=== PATIENT | female | born 1990 | race Caucasian/White ===

== ENCOUNTER 2017-07-05 01:14 | Emergency (ER) | payer MEDICAID ==
[2017-07-05 01:28] VITALS: BP 116/51
[2017-07-05 01:40] LABS: BILIRUBIN,URINE NEGATIVE (NEGATIVE); GLUCOSE, URINE (UA) NEGATIVE (NEGATIVE); KETONES,URINE (UA) NEGATIVE (NEGATIVE); LEUKOCYTE ESTERASE, URINE NEGATIVE (NEGATIVE); NITRITE,URINE NEGATIVE (NEGATIVE); OCCULT BLOOD,URINE SMALL (NEGATIVE); PH,URINE 6.5 PH (5.0-7.5); PROTEIN,URINE NEGATIVE (NEGATIVE); UROBILINOGEN,URINE 0.2 (NORMAL) E.U./dL (NORMAL)
[2017-07-05 01:48] LABS: CLARITY,URINE CLEAR (CLEAR)
[2017-07-05 01:49] LABS: HCG UR QUAL POSITIVE
[2017-07-05 01:51] LABS: BACTERIA,URINE None Seen /HPF (None Seen); RBC,URINE 0-5 /HPF (0-5); SQUAMOUS EPITHELIAL CELL,UR RARE Squamous (<= Few)
[2017-07-05 02:14] LABS: BASOPHILS # (AUTO) 0.1 10^3/uL (0.0-0.1); BASOPHILS % (AUTO) 0.7 %; EOSINOPHILS # (AUTO) 0.2 10^3/uL (0.0-0.7); EOSINOPHILS % (AUTO) 1.8 %; HGB - HEMOGLOBIN 13.2 g/dL (12.0-16.0); LYMPHOCYTES # (AUTO) 3.8 10^3/uL (1.5-3.5); LYMPHOCYTES % (AUTO) 34.2 %; MEAN CORPUSCULAR HEMOGLOBIN 29.7 pg (27.0-31.0); MEAN CORPUSCULAR VOLUME 87.4 fL (81.0-99.0); MEAN PLATELET VOLUME 8.2 fL (7.9-10.8); MONOCYTES # (AUTO) 0.6 10^3/uL (0.0-1.0); MONOCYTES % (AUTO) 5.7 %; NEUTROPHILS # (AUTO) 6.4 10^3/uL (1.5-6.6); NEUTROPHILS % (AUTO) 57.6 %; PLT - PLATELET COUNT 272 10^3/uL (130-450); RED BLOOD COUNT 4.45 10^6/uL (4.20-5.40); RED CELL DISTRIBUTION WIDTH 13.8 % (12.0-15.0); WHITE BLOOD COUNT 11.2 x10^3/uL (4.8-10.8)
--- NOTE | 2017-07-05 02:15 | ED Physician Documentation ---
PD HPI FEMALE - Stated complaint Stated Complaint: LOW ABDOMINAL PAIN - Chief complaint Chief Complaint: Abd Pain - History obtained from History obtained from: Patient - History of Present Illness Timing - onset: Yesterday Timing - details: Gradual onset, Still present Associated symptoms: Abdominal pain, Vaginal bleeding Similar symptoms before: Work up / diagnostics Recently seen: Not recently seen - Additional information Additional information: Patient is a 26 year old female presenting to the emergency department for back pain, and brownish vaginal discharge. patient states that her symptoms have been going on for the last couple of days. patient states that her lmp was about 1 month ago. Review of Systems Constitutional: denies: Fever, Chills Eyes: reports: Reviewed and negative Ears: reports: Reviewed and negative GI: reports: Abdominal Pain. denies: Nausea, Vomiting, Constipation, Diarrhea : reports: Vaginal bleeding. 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: section - Present Medications Home Medications: Ambulatory Orders Medication Instructions Recorded Confirmed No Known Home Medications [No 07/05/17 07/05/17 Known Home Medications] - Allergies Allergies/Adverse Reactions: Allergies Allergy/AdvReac Type Severity Reaction Status Date / Time No Known Drug Allergies Allergy Verified 07/05/17 01:29 - Social History Does the pt smoke?: No Smoking Status: Never smoker Does the pt drink ETOH?: No Does the pt have substance abuse?: No - Immunizations Immunizations are current?: Yes - POLST Patient has POLST: No PD ED PE NORMAL - Vitals Vital signs reviewed: Yes - General General: Alert and oriented X 3, No acute distress - HEENT HEENT: Atraumatic, PERRL - Neck Neck: Supple, no meningeal sign - Cardiac Cardiac: RRR - Respiratory Respiratory: No respiratory distress - Abdomen Abdomen: Soft, Non tender, Non distended - Rectal Rectal: Deferred - Derm Derm: Normal color, No rash - Extremities Extremities: No deformity - Neuro Neuro: Alert and oriented X 3 Eye Opening: Spontaneous Results - Vitals Vitals: Vital Signs - 24 hr 07/05/17 07/05/17 01:26 02:00 Temperature 36.3 C L Heart Rate 77 Respiratory 16 16 Rate Blood Pressure 116/51 L O2 Saturation 99 Oxygen O2 Source Room air - Labs Labs: Laboratory Tests 07/05/17 07/05/17 07/05/17 01:30 02:00 02:00 WBC 11.2 H RBC 4.45 Hgb 13.2 Hct 38.9 MCV 87.4 MCH 29.7 MCHC 34.0 RDW 13.8 Plt Count 272 MPV 8.2 Neut # 6.4 Lymph # 3.8 H [place] # 0.6 Eos # 0.2 Baso # 0.1 Absolute Nucleated RBC 0.00 Nucleated RBC % 0.0 Sodium 134 L Potassium 3.8 Chloride 105 Carbon Dioxide 23 Anion Gap 6.0 BUN 13 Creatinine 0.5 Estimated GFR (MDRD) 150 Glucose 109 H Calcium 9.3 Total Bilirubin 0.4 AST 28 ALT 33 Alkaline Phosphatase 67 Total Protein 7.9 Albumin 4.4 Globulin 3.5 Albumin/Globulin Ratio 1.3 Lipase 20 L HCG, Quant Urine Color YELLOW Urine Clarity CLEAR Urine pH 6.5 Ur Specific [place] <=1.005 Urine Protein NEGATIVE Urine Glucose (UA) NEGATIVE Urine Ketones NEGATIVE Urine Occult Blood SMALL H Urine Nitrite NEGATIVE Urine Bilirubin NEGATIVE Urine Urobilinogen 0.2 (NORMAL) Ur Leukocyte Esterase NEGATIVE Urine RBC 0-5 Urine WBC 0-3 Ur Squamous Epith Cells RARE Squamous Urine Bacteria None Seen Ur Microscopic Review INDICATED Urine Culture Comments NOT INDICATED Urine HCG, Qual POSITIVE Blood Type 07/05/17 07/05/17 02:00 02:00 WBC RBC Hgb Hct MCV MCH MCHC RDW Plt Count MPV Neut # Lymph # [place] # Eos # Baso # Absolute Nucleated RBC Nucleated RBC % Sodium Potassium Chloride Carbon Dioxide Anion Gap BUN Creatinine Estimated GFR (MDRD) Glucose Calcium Total Bilirubin AST ALT Alkaline Phosphatase Total Protein Albumin Globulin Albumin/Globulin Ratio Lipase HCG, Quant 599.93 Urine Color Urine Clarity Urine pH Ur Specific [place] Urine Protein Urine Glucose (UA) Urine Ketones Urine Occult Blood Urine Nitrite Urine Bilirubin Urine Urobilinogen Ur Leukocyte Esterase Urine RBC Urine WBC Ur Squamous Epith Cells Urine Bacteria Ur Microscopic Review Urine Culture Comments Urine HCG, Qual Blood Type O POSITIVE PD MEDICAL DECISION MAKING - ED course Complexity details: reviewed old records, reviewed results, re-evaluated patient , considered differential, d/w patient, d/w family ED course: Patient was seen and examined at bedside. patient was well appearing and in no distress. Urine was collected and labs were drawn. Patient was found to be but the beta was only 600. Patient was treated with tylenol for pain. Patient was made aware that she would need to return in 48-72 hours for repeat beta test. patient understood and was stable for discharge with outpatient follow up. Departure - Departure Disposition: Home, Self Care Clinical Impression: Early stage of Condition: Good Instructions: Bleeding Early Preg Follow-Up: primary,care provider [Other] - Within 3 Days Print Language: Martiniquais Comments: Your results of your beta hcg are low. it is impossible to say if it is early or a miscarriage. You will need to follow up with your doctor or return to the emergency department for repeat beta hcg and possibly an ultrasound. You can take tylenol 650mg as needed for pain. You should return to emergency department sooner for new or worsening symptoms.
[2017-07-05 02:20] LABS: ALBUMIN 4.4 g/dL (3.2-5.5); ALBUMIN/GLOBULIN RATIO 1.3 (1.0-2.2); BILIRUBIN,TOTAL 0.4 mg/dL (0.2-1.0); CALCIUM 9.3 mg/dL (8.5-10.3); CREATININE 0.5 mg/dL (0.4-1.0); TOTAL PROTEIN 7.9 g/dL (6.7-8.2)
[2017-07-05] MEDS ORDERED: ACETAMINOPHEN 325 MG TABLET PO STA (02:53)
== END 2017-07-05 03:10 | disposition home or self-care (01) ==
LOC: ED 01:14
DX: O20.9 Hemorrhage in early pregnancy, unspecified (principal); Z3A.01 Less than 8 weeks gestation of pregnancy
CPT/HCPCS: 36415; 80053; 81001; 81025; 83690; 84702; 85025; 86900; 86901; 87491; 87591; 99283; A9270; 81003; 87086

== ENCOUNTER 2017-07-08 19:48 | Emergency (ER) | payer MEDICAID ==
[2017-07-08 20:26] LABS: BILIRUBIN,URINE NEGATIVE (NEGATIVE); GLUCOSE, URINE (UA) NEGATIVE (NEGATIVE); KETONES,URINE (UA) NEGATIVE (NEGATIVE); LEUKOCYTE ESTERASE, URINE NEGATIVE (NEGATIVE); NITRITE,URINE NEGATIVE (NEGATIVE); OCCULT BLOOD,URINE TRACE-LYSE (NEGATIVE); PH,URINE 5.5 PH (5.0-7.5); PROTEIN,URINE NEGATIVE (NEGATIVE); UROBILINOGEN,URINE 0.2 (NORMAL) E.U./dL (NORMAL)
--- NOTE | 2017-07-08 20:28 | ED Physician Documentation ---
PD HPI FEMALE - Stated complaint Stated Complaint: FEMALE /4WKS/ABD PX - Chief complaint Chief Complaint: Abd Pain - History obtained from History obtained from: Patient - History of Present Illness Timing - onset: How many days ago (few) Timing - duration: Days (few) Timing - details: Gradual onset, Waxing and waning Associated symptoms: Pelvic pain, Vaginal bleeding (spotting). 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 denies: Vomiting, Diarrhea : reports: LMP (6 weeks ago). 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(s) : None HEENT: None Psych: None Musculoskeletal: None Derm: None - Past Surgical History Past Surgical History: Yes /MONEY ORDER CLERK: section - Present Medications Home Medications: Ambulatory Orders Medication Instructions Recorded Confirmed Naproxen 375 mg PO BID #20 tablet 07/08/17 - Allergies Allergies/Adverse Reactions: Allergies Allergy/AdvReac Type Severity Reaction Status Date / Time No Known Drug Allergies Allergy Verified 07/08/17 20:05 - Social History Does the pt smoke?: No Smoking Status: Never smoker Does the pt drink ETOH?: No Does the pt have substance abuse?: No - Immunizations Immunizations are current?: No Immunizations: TDAP >10years/unknown - POLST Patient has POLST: No PD ED PE NORMAL - Vitals Vital signs reviewed: Yes - General General: Alert and oriented X 3, No acute distress, Well developed/nourished - Cardiac Cardiac: RRR, No murmur - Respiratory Respiratory: Clear bilaterally - Abdomen Abdomen: Normal bowel sounds, Soft, Non tender, Non distended, No organomegaly - Female Female : Deferred - Back Back: No CVA TTP, No spinal TTP - Derm Derm: Normal color, Warm and dry - Neuro Neuro: Alert and oriented X 3, No motor deficit, Normal speech Results - Vitals Vitals: Oxygen O2 Source Room air - Labs Labs: Laboratory Tests 07/08/17 07/08/17 07/08/17 20:17 21:20 21:20 WBC 11.5 H RBC 4.36 Hgb 12.4 Hct 38.3 MCV 87.7 MCH 28.4 MCHC 32.4 RDW 13.4 Plt Count 284 MPV 8.3 Neut # 6.8 H Lymph # 3.8 H [place] # 0.7 Eos # 0.2 Baso # 0.1 Absolute Nucleated RBC 0.00 Nucleated RBC % 0.0 HCG, Quant 3308.00 Urine Color YELLOW Urine Clarity CLEAR Urine pH 5.5 Ur Specific [place] 1.010 Urine Protein NEGATIVE Urine Glucose (UA) NEGATIVE Urine Ketones NEGATIVE Urine Occult Blood TRACE-LYSE Urine Nitrite NEGATIVE Urine Bilirubin NEGATIVE Urine Urobilinogen 0.2 (NORMAL) Ur Leukocyte Esterase NEGATIVE Ur Microscopic Review NOT INDICATED Urine Culture Comments NOT INDICATED Urine HCG, Qual POSITIVE - Rads (name of study) OB U/S Radiology: Prelim report reviewed (gestational sac c/w 5 weeks, but no pole seen. ) PD MEDICAL DECISION MAKING - ED course Complexity details: reviewed results (apparent gestational sac without pole but is early . Her HCG has gone up from prior. ), considered differential, d/w patient Departure - Departure Disposition: 01 Home, Self Care Clinical Impression: Early stage of , Lower abdominal pain Condition: Stable Record reviewed to determine appropriate education?: Yes Instructions: ED Abdominal Pain Rule Out Ectopic Follow-Up: Mckayla Mckeon DO [Provider Admit Priv/Credential] - Prescriptions: Naproxen 375 mg PO BID #20 tablet Print Language: Wolof Comments: Your ultrasound and blood test show an early in the uterus. Follow with Dr. Mckeon in about 3 days, call for an appointment. You can use naproxen or ibuprofen twice daily and add Tylenol if needed for the pains at this point in . Recheck if not improving over the next few days. Discharge Date/Time: 07/08/17 23:43
[2017-07-08 20:29] LABS: CLARITY,URINE CLEAR (CLEAR); HCG UR QUAL POSITIVE
[2017-07-08] MEDS ORDERED: HYDROcod/ACETAM 5/325 MG TABLET PO STA (21:11)
[2017-07-08] MEDS ORDERED: ONDANSETRON ODT 4 MG TABLET TL STA (21:11)
[2017-07-08 21:43] LABS: BASOPHILS # (AUTO) 0.1 10^3/uL (0.0-0.1); BASOPHILS % (AUTO) 0.6 %; EOSINOPHILS # (AUTO) 0.2 10^3/uL (0.0-0.7); EOSINOPHILS % (AUTO) 1.5 %; HGB - HEMOGLOBIN 12.4 g/dL (12.0-16.0); LYMPHOCYTES # (AUTO) 3.8 10^3/uL (1.5-3.5); LYMPHOCYTES % (AUTO) 32.6 %; MEAN CORPUSCULAR HEMOGLOBIN 28.4 pg (27.0-31.0); MEAN CORPUSCULAR HGB CONC 32.4 g/dL (32.0-36.0); MEAN CORPUSCULAR VOLUME 87.7 fL (81.0-99.0); MEAN PLATELET VOLUME 8.3 fL (7.9-10.8); MONOCYTES # (AUTO) 0.7 10^3/uL (0.0-1.0); MONOCYTES % (AUTO) 6.4 %; NEUTROPHILS # (AUTO) 6.8 10^3/uL (1.5-6.6); NEUTROPHILS % (AUTO) 58.9 %; PLT - PLATELET COUNT 284 10^3/uL (130-450); RED BLOOD COUNT 4.36 10^6/uL (4.20-5.40); RED CELL DISTRIBUTION WIDTH 13.4 % (12.0-15.0); WHITE BLOOD COUNT 11.5 x10^3/uL (4.8-10.8)
--- NOTE | 2017-07-08 22:55 | Ultrasound Preliminary Report ---
Exam: US OB FIRST TRIMESTER IMPRESSION: Early intrauterine gestation with gestational sac but no yolk sac or pole seen curr ently. Additional tiny cystic structure could reflect a second gestational sac or perigestational ble ed. Clinical and ultrasound follow-up suggested in 2 weeks to ensure viability of and for m ore accurate dating. SITE ID: [id number]
--- NOTE | 2017-07-08 22:55 | Ultrasound Preliminary Report ---
Exam: US OB TRANSVAGINAL IMPRESSION: Early intrauterine gestation with gestational sac but no yolk sac or pole seen curr ently. Additional tiny cystic structure could reflect a second gestational sac or perigestational ble ed. Clinical and ultrasound follow-up suggested in 2 weeks to ensure viability of and for m ore accurate dating. SITE ID: [id number]
--- NOTE | 2017-07-08 22:58 | Ultrasound Report ---
EXAM: FIRST TRIMESTER OBSTETRIC ULTRASOUND (Less than 11 weeks) EXAM DATE: 07/08/2017 10:33 PM. CLINICAL HISTORY: Lower abdominal pain, left; early . LMP: 05/27/2017, 6 weeks 0 days. COMPARISONS: None. TECHNIQUE: Transabdominal and transvaginal ultrasound examination with static image documentation. CLINICAL DATES: EGA weeks/days with ALONDRA based on LMP/prior ultrasound/other. FINDINGS: Gestational Sac: A small intrauterine fluid-filled sac contains neither yolk sac or pole. Mean sac diameter of 4 mm corresponds to a 5 week 1 days gestation. There is a tiny 2 x 4 mm adjacent zoë tional cystic focus which could be a separate gestational sac or perigestational bleed. Placenta: Not visible at this gestational age. Amniotic fluid: Not accurately assessed at this gestational age. Uterus: Unremarkable anteverted appearance. Cervix: Closed. Right Ovary: Volume 6 cc. Normal echotexture and blood flow. Left Ovary: Volume 10 cc. Normal echotexture and blood flow. Free Fluid: None. Other: None. IMPRESSION: Early intrauterine gestation with gestational sac but no yolk sac or pole seen curr ently. Additional tiny cystic structure could reflect a second gestational sac or perigestational ble ed. Clinical and ultrasound follow-up suggested in 2 weeks to ensure viability of and for m ore accurate dating. Referring Provider Line: [phone] SITE ID: [id number]
[2017-07-08] MEDS ORDERED: IBUPROFEN 400 MG TABLET PO STA (23:21)
[2017-07-08 23:27] VITALS: BP 108/71
== END 2017-07-08 23:43 | disposition home or self-care (01) ==
LOC: ED 19:48
DX: O20.9 Hemorrhage in early pregnancy, unspecified (principal); R10.2 Pelvic and perineal pain; Z3A.01 Less than 8 weeks gestation of pregnancy
CPT/HCPCS: 36415; 76801; 76817; 81003; 81025; 84702; 85025; 99283; A9270; Q0162; 81001; 86900; 86901; 87086

== ENCOUNTER 2017-07-16 09:18 | Outpatient (CLI) | payer MEDICAID | END 2017-07-16 09:19 | disposition home or self-care (01) | LOC: LAB 09:18 | PROVIDERS: ATTEND Obstetrics & Gynecology | DX: Z3A.01 Less than 8 weeks gestation of pregnancy (principal) | CPT/HCPCS: 36415; 84702 ==

== ENCOUNTER 2017-07-25 16:13 | Emergency (ER) | payer MEDICAID ==
--- NOTE | 2017-07-25 16:36 | ED Physician Documentation ---
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 No fevers, vomiting. No dysuria. 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 - Present Medications Home Medications: Ambulatory Orders Medication Instructions Recorded Confirmed Naproxen 375 mg PO BID #20 tablet 07/08/17 - Allergies Allergies/Adverse Reactions: Allergies Allergy/AdvReac Type Severity Reaction Status Date / Time No Known Drug Allergies Allergy Verified 07/08/17 20:05 - Social History Does the pt smoke?: No Smoking Status: Never smoker Does the pt drink ETOH?: No Does the pt have substance abuse?: No - Immunizations Immunizations are current?: No Immunizations: TDAP >10years/unknown - POLST Patient has POLST: No PD ED PE NORMAL - Vitals Vital signs reviewed: Yes - General General: Alert and oriented X 3, No acute distress - Abdomen Abdomen: Normal bowel sounds, Soft, Non tender - Back Back: No CVA TTP, No spinal TTP - Derm Derm: Normal color, Warm and dry - Extremities Extremities: No edema, No calf tenderness / cord - Neuro Neuro: Alert and oriented X 3, Normal speech Results - Vitals Vitals: Vital Signs - 24 hr 07/25/17 16:21 Temperature 36.9 C Heart Rate 70 Respiratory 16 Rate Blood Pressure 109/53 L O2 Saturation 98 Oxygen O2 Source Room air - Labs Labs: Laboratory Tests 07/25/17 07/25/17 16:47 16:55 HCG, Quant 740259.00 Urine Color YELLOW Urine Clarity CLEAR Urine pH 5.5 Ur Specific [place] 1.010 Urine Protein NEGATIVE Urine Glucose (UA) NEGATIVE Urine Ketones NEGATIVE Urine Occult Blood TRACE-LYSE Urine Nitrite NEGATIVE Urine Bilirubin NEGATIVE Urine Urobilinogen 0.2 (NORMAL) Ur Leukocyte Esterase NEGATIVE Ur Microscopic Review NOT INDICATED Urine Culture Comments NOT INDICATED - Rads (name of study) Ob Sono Radiology: EMP read contemporaneously (Uncomplicated twin ) PD MEDICAL DECISION MAKING - ED course Complexity details: reviewed old records (blood type Opos) Departure - Departure Disposition: 01 Home, Self Care Clinical Impression: Threatened in early Twin Qualifiers: Multiple gestation type: dichorionic and diamniotic Trimester: first trimester Qualified Code(s): O30.041 - Twin , dichorionic/diamniotic, first trimester Condition: Good Record reviewed to determine appropriate education?: Yes Instructions: ED Miscarriage Poss Follow-Up: [facility] [Provider Group] Print Language: French
[2017-07-25 17:10] LABS: BILIRUBIN,URINE NEGATIVE (NEGATIVE); CLARITY,URINE CLEAR (CLEAR); GLUCOSE, URINE (UA) NEGATIVE (NEGATIVE); KETONES,URINE (UA) NEGATIVE (NEGATIVE); LEUKOCYTE ESTERASE, URINE NEGATIVE (NEGATIVE); NITRITE,URINE NEGATIVE (NEGATIVE); OCCULT BLOOD,URINE TRACE-LYSE (NEGATIVE); PH,URINE 5.5 PH (5.0-7.5); PROTEIN,URINE NEGATIVE (NEGATIVE); UROBILINOGEN,URINE 0.2 (NORMAL) E.U./dL (NORMAL)
--- NOTE | 2017-07-25 19:43 | Ultrasound Report ---
EXAM: FIRST TRIMESTER OBSTETRIC ULTRASOUND (Less than 11 weeks) EXAM DATE: 07/25/2017 07:17 PM. CLINICAL HISTORY: Pelvic pain, resolved VB, 7 weeks. LMP: Unknown. COMPARISONS: None. TECHNIQUE: Transabdominal and transvaginal ultrasound examination with static image documentation. ASSESSMENT Twin A (maternal left) Gestational Sac: Mean gestational sac diameter: 24 mm. Embryo: CRL (crown-rump length) 12 mm = 7 weeks 2 days. Cardiac activity: 142 beats per minute. Yolk sac: 3 mm. Amniotic fluid: Not accurately assessed at this gestational age. Early placenta: Not visible at this gestational age. Other: Small perigestational fluid collection. Twin B (maternal right) Gestational Sac: Mean gestational sac diameter: 19 mm. Embryo: CRL (crown-rump length) 11 mm = 72 days. Cardiac activity: 133 beats per minute. Yolk sac: 2 mm. Amniotic fluid: Not accurately assessed at this gestational age. Early placenta: Not visible at this gestational age. Other: No perigestational fluid collection demonstrated. MATERNAL STRUCTURES: Uterus: Anteverted/Retroverted. Unremarkable. Cervix: Closed. Right Ovary/Adnexa: Unremarkable. The ovary measures 2.7 x 1.5 x 1.8 cm, volume 4 cc. Left Ovary/Adnexa: Unremarkable. The ovary measures 3.7 x 2.5 x 2.4 cm, volume 12 cc. Free Fluid: None. Other: None. IMPRESSION: 1. Living twin . Estimated sonographic age 7 weeks 2 days. 2. No significant adnexal abnormalities are seen. JOB Referring Provider Line: [phone] SITE ID: [id number] REVISED: REPORT ORIG. SIGNED ON 07/25/17@1943; ORDERS LINKED ON 09/22/17 jll MTDD
[2017-07-25 20:01] VITALS: BP 101/68
== END 2017-07-25 20:01 | disposition home or self-care (01) ==
LOC: ED 16:13
DX: O20.0 Threatened abortion (principal); O30.041 Twin pregnancy, dichorionic/diamniotic, first trimester; Z3A.01 Less than 8 weeks gestation of pregnancy
CPT/HCPCS: 36415; 76801; 76817; 81001; 81003; 84702; 86900; 86901; 87086; 99283

== ENCOUNTER 2017-08-14 10:57 | Outpatient (CLI) | payer MEDICAID ==
[2017-08-14 19:03] LABS: BASOPHILS % (AUTO) 0.4 %; EOSINOPHILS # (AUTO) 0.1 10^3/uL (0.0-0.7); EOSINOPHILS % (AUTO) 1.1 %; HGB - HEMOGLOBIN 12.7 g/dL (12.0-16.0); LYMPHOCYTES # (AUTO) 2.8 10^3/uL (1.5-3.5); LYMPHOCYTES % (AUTO) 31.7 %; MEAN CORPUSCULAR HEMOGLOBIN 30.8 pg (27.0-31.0); MEAN CORPUSCULAR HGB CONC 34.1 g/dL (32.0-36.0); MEAN CORPUSCULAR VOLUME 90.1 fL (81.0-99.0); MEAN PLATELET VOLUME 8.5 fL (7.9-10.8); MONOCYTES # (AUTO) 0.4 10^3/uL (0.0-1.0); MONOCYTES % (AUTO) 4.7 %; NEUTROPHILS # (AUTO) 5.5 10^3/uL (1.5-6.6); NEUTROPHILS % (AUTO) 62.1 %; PLT - PLATELET COUNT 315 10^3/uL (130-450); RED BLOOD COUNT 4.14 10^6/uL (4.20-5.40); RED CELL DISTRIBUTION WIDTH 13.8 % (12.0-15.0); WHITE BLOOD COUNT 8.8 x10^3/uL (4.8-10.8)
[2017-08-15 15:27] LABS: HIV AG/AB 4TH GEN NON-REACTIVE (NON-REACTIVE)
[2017-08-15 15:35] LABS: HEPATITIS B SURFACE ANTIGEN NON-REACTIVE (NON-REACTIVE)
[2017-08-15 16:06] LABS: HEPATITIS C ANTIBODY NON-REACTIVE (NON-REACTIVE)
== END 2017-08-14 10:58 | disposition home or self-care (01) ==
LOC: LAB.N 10:57
PROVIDERS: ATTEND Obstetrics & Gynecology
DX: Z3A.09 9 weeks gestation of pregnancy (principal)
CPT/HCPCS: 36415; 81599; 85025; 86592; 86762; 86803; 86850; 86900; 86901; 87340; 87389

== ENCOUNTER 2017-08-22 19:25 | Emergency (ER) | payer MEDICAID ==
[2017-08-22 19:34] VITALS: BP 117/59
[2017-08-22 19:51] LABS: BILIRUBIN,URINE NEGATIVE (NEGATIVE); KETONES,URINE (UA) NEGATIVE (NEGATIVE); LEUKOCYTE ESTERASE, URINE NEGATIVE (NEGATIVE); NITRITE,URINE NEGATIVE (NEGATIVE); OCCULT BLOOD,URINE TRACE-LYSE (NEGATIVE); PH,URINE 5.5 PH (5.0-7.5); PROTEIN,URINE NEGATIVE (NEGATIVE); UROBILINOGEN,URINE 0.2 (NORMAL) E.U./dL (NORMAL)
[2017-08-22 19:52] LABS: CLARITY,URINE CLEAR (CLEAR); GLUCOSE, URINE (UA) NEGATIVE (NEGATIVE)
--- NOTE | 2017-08-22 20:08 | ED Physician Documentation ---
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 patient states that the symptoms started about 30 minutes prior to arrival. 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(s) : None HEENT: None Psych: None Musculoskeletal: None Derm: None - Past Surgical History Past Surgical History: Yes /CROWN BLOCKER: section - Present Medications Home Medications: Ambulatory Orders Medication Instructions Recorded Confirmed Naproxen 375 mg PO BID #20 tablet 07/08/17 08/22/17 Acetaminophen [Tylenol] 650 mg PO Q6H PRN #30 tablet 07/25/17 08/22/17 Vit No.129/Iron/FA 1 each PO DAILY #90 tablet 07/25/17 08/22/17 [ Tablet] - Allergies Allergies/Adverse Reactions: Allergies Allergy/AdvReac Type Severity Reaction Status Date / Time No Known Drug Allergies Allergy Verified 08/22/17 19:34 - Social History Does the pt smoke?: No Smoking Status: Never smoker Does the pt drink ETOH?: No Does the pt have substance abuse?: No - Immunizations Immunizations are current?: No Immunizations: TDAP >10years/unknown - POLST Patient has POLST: No PD ED PE NORMAL - Vitals Vital signs reviewed: Yes - General General: Alert and oriented X 3, No acute distress - HEENT HEENT: Atraumatic - Cardiac Cardiac: RRR - Respiratory Respiratory: No respiratory distress - Abdomen Abdomen: Soft - Derm Derm: Normal color, Warm and dry - Extremities Extremities: No deformity - Neuro Neuro: Alert and oriented X 3 Eye Opening: Spontaneous Motor: Obeys Commands Verbal: Oriented GCS Score: 15 - Psych Psych: Normal mood PD ED PE EXPANDED - Abdomen Abdomen: Surgical scars - Female Female : Vaginal Bleeding Results - Vitals Vitals: Vital Signs - 24 hr 08/22/17 19:26 Temperature 36.2 C L Heart Rate 85 Respiratory 16 Rate Blood Pressure 117/59 L O2 Saturation 99 Oxygen O2 Source Room air - Labs Labs: Laboratory Tests 08/22/17 19:40 Urine Color YELLOW Urine Clarity CLEAR Urine pH 5.5 Ur Specific [place] 1.010 Urine Protein NEGATIVE Urine Glucose (UA) NEGATIVE Urine Ketones NEGATIVE Urine Occult Blood TRACE-LYSE Urine Nitrite NEGATIVE Urine Bilirubin NEGATIVE Urine Urobilinogen 0.2 (NORMAL) Ur Leukocyte Esterase NEGATIVE Ur Microscopic Review NOT INDICATED Urine Culture Comments NOT INDICATED Procedures - Bedside sono Bedside sono by EMP: pelvic, viable twin IUP both active with FHR 167 PD MEDICAL DECISION MAKING - ED course Complexity details: reviewed old records, reviewed results, re-evaluated patient , considered differential, d/w patient, d/w family ED course: Patient was seen and examined at bedside. Urine was collected. Patient's blood type was known and was Rh positive. beside sono was performed and showed two viable fetuses. Patient was made aware of the findings. Urinalysis was negative. Patient and family were given detailed discharge and follow up instructions in qatari. patient required no further work up and was stable for discharge with outpatient follow up. - Sepsis Event Vital Signs: Vital Signs - 24 hr 08/22/17 19:26 Temperature 36.2 C L Heart Rate 85 Respiratory 16 Rate Blood Pressure 117/59 L O2 Saturation 99 Oxygen O2 Source Room air Departure - Departure Disposition: 01 Home, Self Care Clinical Impression: Vaginal bleeding before 22 weeks gestation, Threatened in early Condition: Good Instructions: ED Miscarriage Poss Follow-Up: primary,care provider [Other] - Within 3 Days Print Language: Slovak Comments: Your diagnostics today were within normal limits. both of the fetuses appear well. there is no sign of infection in your urine. You are at higher risk and will neeed to follow up closely with your OB doctor. You should avoid any heavy lifting or strenous activity. You should return to the emergency department at any time for new, worsening or uncontrollable symptoms.
== END 2017-08-22 20:13 | disposition home or self-care (01) ==
LOC: ED 19:25
DX: O20.0 Threatened abortion (principal); Z3A.11 11 weeks gestation of pregnancy
CPT/HCPCS: 81001; 81003; 86900; 86901; 87086; 99283

== ENCOUNTER 2017-08-30 14:38 | Emergency (ER) | END 2017-08-30 20:50 | disposition short-term general hospital (02) | CPT/HCPCS: 36415; 76705; 76801; 80053; 81003; 83690; 85025; 85651; 86140; 96360; 99283; 99284; A9270 ==

== ENCOUNTER 2017-08-30 20:51 | Outpatient (CLI) | payer MEDICAID | END 2017-08-30 20:52 | disposition short-term general hospital (02) | LOC: EMS 20:51 | PROVIDERS: ATTEND Surgery | DX: O99.89 Other specified diseases and conditions complicating pregnancy, childbirth and the puerperium (principal); R10.31 Right lower quadrant pain | CPT/HCPCS: A0170; A0425; A0426 ==

== ENCOUNTER 2017-09-05 10:17 | Outpatient (CLI) | payer MEDICAID | END 2017-09-05 10:18 | disposition home or self-care (01) | LOC: LAB.N 10:17 | PROVIDERS: ATTEND Obstetrics & Gynecology | DX: Z13.79 Encounter for other screening for genetic and chromosomal anomalies (principal) | CPT/HCPCS: 36415; 81599; 84163 ==

== ENCOUNTER 2017-09-19 09:47 | Outpatient (CLI) | payer MEDICAID | END 2017-09-19 09:48 | disposition home or self-care (01) | LOC: LAB.N 09:47 | PROVIDERS: ATTEND Obstetrics & Gynecology | DX: Z36.9 Encounter for antenatal screening, unspecified (principal) | CPT/HCPCS: 36415; 81599 ==

== ENCOUNTER 2017-09-24 23:05 | Emergency (ER) | payer MEDICAID ==
[2017-09-24 23:24] VITALS: BP 105/45
[2017-09-24 23:42] LABS: BILIRUBIN,URINE NEGATIVE (NEGATIVE); GLUCOSE, URINE (UA) NEGATIVE (NEGATIVE); KETONES,URINE (UA) NEGATIVE (NEGATIVE); LEUKOCYTE ESTERASE, URINE NEGATIVE (NEGATIVE); NITRITE,URINE NEGATIVE (NEGATIVE); OCCULT BLOOD,URINE NEGATIVE (NEGATIVE); PROTEIN,URINE NEGATIVE (NEGATIVE); UROBILINOGEN,URINE 0.2 (NORMAL) E.U./dL (NORMAL)
[2017-09-24 23:43] LABS: CLARITY,URINE CLEAR (CLEAR)
[2017-09-24] MEDS ORDERED: ACETAMINOPHEN 500 MG TABLET PO STA (23:47)
--- NOTE | 2017-09-25 00:16 | ED Physician Documentation ---
PD HPI FEMALE - Stated complaint Stated Complaint: ABD PAIN 16 WKS PREG - Chief complaint Chief Complaint: Abd Pain - History obtained from History obtained from: Patient - History of Present Illness Timing - onset: Today Timing - details: Gradual onset, Still present Associated symptoms: Abdominal pain Contributing factors: Similar symptoms before: Work up / diagnostics Recently seen: Clinic, Emergency Dept - Additional information Additional information: Patient is a 26 year old female 16 weeks by dates with twins who is presenting to the emergency department for lower abdominal pain and dysuria. Patient denies any vaginal bleeding. patient has a follow up appointment tomorrow with her doctor. Review of Systems Ten Systems: 10 systems reviewed and negative Constitutional: denies: Fever, Chills GI: reports: Abdominal Pain. denies: Nausea, Vomiting : reports: Dysuria. 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 WINDER MACHINE: Miscarriage(s) : None HEENT: None Psych: None Musculoskeletal: None Derm: None - Past Surgical History Past Surgical History: Yes /DEICER ELEMENT WINDER MACHINE: section - Present Medications Home Medications: Ambulatory Orders Medication Instructions Recorded Confirmed Naproxen 375 mg PO BID #20 tablet 07/08/17 08/22/17 Acetaminophen [Tylenol] 650 mg PO Q6H PRN #30 tablet 07/25/17 08/22/17 Vit No.129/Iron/FA 1 each PO DAILY #90 tablet 07/25/17 08/22/17 [ Tablet] - Allergies Allergies/Adverse Reactions: Allergies Allergy/AdvReac Type Severity Reaction Status Date / Time No Known Drug Allergies Allergy Verified 09/24/17 23:24 - Social History Does the pt smoke?: No Smoking Status: Never smoker Does the pt drink ETOH?: No Does the pt have substance abuse?: No - Immunizations Immunizations are current?: No Immunizations: TDAP >10years/unknown - POLST Patient has POLST: No PD ED PE NORMAL - Vitals Vital signs reviewed: Yes - General General: Alert and oriented X 3, No acute distress - HEENT HEENT: Atraumatic, Moist mucous membranes - Cardiac Cardiac: RRR - Respiratory Respiratory: No respiratory distress - Derm Derm: Normal color - Extremities Extremities: No deformity - Neuro Neuro: Alert and oriented X 3, No motor deficit, Normal speech Eye Opening: Spontaneous Results - Vitals Vitals: Vital Signs - 24 hr 09/24/17 23:16 Temperature 36.6 C Heart Rate 77 Respiratory 20 Rate Blood Pressure 105/45 L O2 Saturation 100 Oxygen O2 Source Room air - Labs Labs: Laboratory Tests 09/24/17 23:29 Urine Color YELLOW Urine Clarity CLEAR Urine pH 7.0 Ur Specific [place] <=1.005 Urine Protein NEGATIVE Urine Glucose (UA) NEGATIVE Urine Ketones NEGATIVE Urine Occult Blood NEGATIVE Urine Nitrite NEGATIVE Urine Bilirubin NEGATIVE Urine Urobilinogen 0.2 (NORMAL) Ur Leukocyte Esterase NEGATIVE Ur Microscopic Review NOT INDICATED Urine Culture Comments NOT INDICATED Procedures - Bedside sono Bedside sono by EMP: pelvic-twin gestation with two viable IUPs FHR ranging for both between 140-150 PD MEDICAL DECISION MAKING - ED course Complexity details: reviewed old records, reviewed results, re-evaluated patient , considered differential, d/w patient ED course: Patient was seen and examined at bedside. urine was collected and showed no sign of infection. bedside ultrasound was performed and was within normal limits. Patient was treated with tylenol for pain and was stable for discharge with outpatient followup. - Sepsis Event Vital Signs: Vital Signs - 24 hr 09/24/17 23:16 Temperature 36.6 C Heart Rate 77 Respiratory 20 Rate Blood Pressure 105/45 L O2 Saturation 100 Oxygen O2 Source Room air Departure - Departure Disposition: 01 Home, Self Care Clinical Impression: Abdominal pain affecting Condition: Good Instructions: ED Abdominal Pain Rule Out Ectopic Follow-Up: Primary,care provider [Other] Comments: Your urinalysis and ultrasound today were within normal limits. you can take tylenol as needed for pain. you should stay well hydrated and follow up with your doctor tomorrow. you may return to the emergency department at any time for new, worsening or uncontrollable symptoms.
== END 2017-09-25 00:38 | disposition home or self-care (01) ==
LOC: ED 23:05
DX: O26.892 Other specified pregnancy related conditions, second trimester (principal); R10.9 Unspecified abdominal pain; Z3A.16 16 weeks gestation of pregnancy
CPT/HCPCS: 81001; 81003; 87086; 99283

== ENCOUNTER 2017-10-23 07:24 | Outpatient (CLI) | payer MEDICAID ==
--- NOTE | 2017-10-23 15:35 | Ultrasound Report ---
Procedure Date: 10/23/2017 Accession Number: [id number] / [id number] Procedure: US - OB Detailed Eval CPT Code: FULL RESULT: EXAM: COMPLETE OBSTETRICAL ULTRASOUND EXAM DATE: 10/23/2017 09:57 AM. CLINICAL HISTORY: anatomic survey. COMPARISON: 08/30/2017 ultrasound. TECHNIQUE: Real-time sonographic evaluation of the fetus performed by the hospitality house supervisor. Multiple sales account representative static images were saved for review. Additional transvaginal imaging to more accurately evaluate cervical length/placental position/etc. DATING: Twin A: EGA 21 weeks/0 days with ALONDRA 03/05/2018 based on first ultrasound 08/30/2017. EGA 20 weeks/4 days with ALONDRA 03/08/2018 based on the current ultrasound. GENERAL EVALUATION Twin gestation - Twin A. Cardiac activity: 142 bpm. movement: Within normal limits. Presentation: Breech, maternal right. Placenta: Posterior position. No evidence for previa. Placenta/cervix: Normal. Umbilical cord: 3 vessel cord. Central placental cord origin. Amniotic fluid: Subjectively normal. MVP 4.5 cm. BIOMETRY Bi-Parietal Diameter (BPD): 4.7 cm, 20 weeks/1 day Head Circumference (HC): 17.9 cm, 20 weeks/ 2 days Abdominal Circumference (AC): 16.7 cm, 21 weeks/ 5 days Femur Length (FL): 3.2 cm, 20 weeks/0 days Estimated Weight: 383 gm, 38th percentile for the current sonographic estimate of 20 weeks and 4 days. ANATOMY TWIN A: The intracranial structures, profile, face/nose/lips, spine, 4 chamber heart and outflow tracts, stomach, abdominal wall and cord insertion, diaphragm, bladder, and extremities were visualized and demonstrate no abnormality with the limitation that the left and right legs relationship could not be adequately assessed. The kidneys could not be adequately assessed. DATING: Twin B: EGA 21 weeks/0 days with ALONDRA 03/05/2018 based on first ultrasound 08/30/2017. EGA 20 weeks/5 days with ALONDRA 03/07/2018 based on the current ultrasound. GENERAL EVALUATION: Twin gestation - Twin B. Cardiac activity: 144 bpm. movement: Within normal limits. Presentation: Cephalic, maternal left. Placenta: Posterior position. Placenta/cervix: Normal. Umbilical cord: 3 vessel cord. Central placental cord origin. Amniotic fluid: Subjectively normal. MVP 5.6 cm. BIOMETRY Bi-Parietal Diameter (BPD): 4.9 cm, 20 weeks/5 days Head Circumference (HC): 18.4 cm, 20 weeks/5 days Abdominal Circumference (AC): 15.5 cm, 20 weeks/5 days Femur Length (FL): 3.4 cm, 20 weeks/4 days Estimated Weight: 367 gm, 27th percentile for the current age estimate of 20 weeks and 4 days. ANATOMY TWIN B: The intracranial structures, profile, face/nose/lips, spine, 4 chamber heart and outflow tracts, stomach, abdominal wall and cord insertion, diaphragm, kidneys, bladder, and extremities were visualized and demonstrate no abnormality. MATERNAL STRUCTURES Uterus: Unremarkable. Cervix: Long and closed. Transabdominal length 3.9 cm. Right ovary/adnexa: Unremarkable. Left ovary/adnexa: Unremarkable. Free fluid: None. IMPRESSION: 1. Dichorionic/diamniotic twin live intrauterine with gestational age 21 weeks and 0 days based on the previous ultrasound dated 08/30/2017. 2. Twin A: Current sonographic estimated gestational age of 20 weeks and 4 days. Limited evaluation of the kidneys and bilateral feet to leg relationships. 3. Twin B: Current sonographic estimated gestational age of 20 weeks and 5 days. RADIA
== END 2017-10-23 07:25 | disposition home or self-care (01) ==
LOC: DI 07:24
PROVIDERS: ATTEND Obstetrics & Gynecology
DX: Z36.3 Encounter for antenatal screening for malformations (principal); O30.042 Twin pregnancy, dichorionic/diamniotic, second trimester; Z3A.20 20 weeks gestation of pregnancy
CPT/HCPCS: 76811; 76812

== ENCOUNTER 2017-11-10 10:10 | Outpatient (CLI) | payer MEDICAID ==
[2017-11-10 11:44] LABS: BASOPHILS % (AUTO) 0.5 %; EOSINOPHILS % (AUTO) 0.5 %; HGB - HEMOGLOBIN 11.2 g/dL (12.0-16.0); LYMPHOCYTES % (AUTO) 24.4 %; MEAN CORPUSCULAR HEMOGLOBIN 32.4 pg (27.0-31.0); MEAN CORPUSCULAR HGB CONC 35.2 g/dL (32.0-36.0); MEAN CORPUSCULAR VOLUME 92.2 fL (81.0-99.0); MEAN PLATELET VOLUME 8.5 fL (7.9-10.8); MONOCYTES # (AUTO) 0.4 10^3/uL (0.0-1.0); MONOCYTES % (AUTO) 4.7 %; NEUTROPHILS # (AUTO) 5.6 10^3/uL (1.5-6.6); NEUTROPHILS % (AUTO) 69.9 %; PLT - PLATELET COUNT 245 10^3/uL (130-450); RED BLOOD COUNT 3.47 10^6/uL (4.20-5.40); RED CELL DISTRIBUTION WIDTH 14.1 % (12.0-15.0); WHITE BLOOD COUNT 8.1 x10^3/uL (4.8-10.8)
== END 2017-11-10 10:11 | disposition home or self-care (01) ==
LOC: LAB 10:10
PROVIDERS: ATTEND Obstetrics & Gynecology
DX: Z34.90 Encounter for supervision of normal pregnancy, unspecified, unspecified trimester (principal)
CPT/HCPCS: 36415; 82950; 85025; 86850

== ENCOUNTER 2017-11-11 11:52 | Inpatient (IN) | payer MEDICAID ==
[2017-11-11] MEDS ORDERED: SODIUM CHLORIDE FLUSH 0.9% 10 ML SYRINGE ONE ×2 (13:01→13:13)
[2017-11-11] MEDS ORDERED: LACTATED RINGERS 1,000 ML IV SCH (13:06)
[2017-11-11] MEDS ORDERED: NIFEdipine 10 MG CAPSULE PO ONE (13:12)
[2017-11-11] MEDS ORDERED: MAGNESIUM SULFATE 2 GRAM 6 GM/150 ML BAG IV ONE (13:12)
[2017-11-11] MEDS ORDERED: BETAMETHASONE 30 MG/5 ML VIAL ONE (13:12)
[2017-11-11] MEDS ORDERED: MAGNESIUM SULFATE IN WATER 20 GM/500 ML IV.SOLN IV ONE (13:12)
[2017-11-11] MEDS ORDERED: LACTATED RINGERS 1,000 ML IV ONE (13:13)
[2017-11-11 13:29] LABS: BILIRUBIN,URINE NEGATIVE (NEGATIVE); GLUCOSE, URINE (UA) NEGATIVE (NEGATIVE); KETONES,URINE (UA) NEGATIVE (NEGATIVE); LEUKOCYTE ESTERASE, URINE NEGATIVE (NEGATIVE); NITRITE,URINE NEGATIVE (NEGATIVE); OCCULT BLOOD,URINE MODERATE (NEGATIVE); PROTEIN,URINE NEGATIVE (NEGATIVE); RUPTURE OF MEMBRANES PLUS POSITIVE (NEGATIVE); UROBILINOGEN,URINE 0.2 (NORMAL) E.U./dL (NORMAL)
[2017-11-11 13:43] LABS: CLARITY,URINE CLEAR (CLEAR)
[2017-11-11 13:44] LABS: BACTERIA,URINE Few /HPF (None Seen); RBC,URINE 0-5 /HPF (0-5); SQUAMOUS EPITHELIAL CELL,UR MOD Squamous (<= Few)
[2017-11-11] MEDS ORDERED: MAGNESIUM SULFATE 2 GRAM 2 GM/50 ML BAG IV SCH (14:00)
[2017-11-11 14:07] VITALS: BP 93/42
--- NOTE | 2017-11-11 14:45 | HISTORY & PHYSICAL EXAMINATION ---
DATE OF SERVICE: 11/12/2017 Physician: Mckayla Mckeon DO FACOG IDENTIFICATION: This is a 26-year-old G7, P3-0-3-2 with a 22-week 6-day di/di twin gestation, with EDC of 03/11/2018 established by a 6-week ultrasound. HISTORY OF PRESENT ILLNESS: This is a patient of [facility] who presented to Labor and Delivery with complaints of abdominal pain as well as vaginal bleeding. She is kirsten irregularly, approximately every 4-5 minutes. Sterile speculum examination by Dr. Coe revealed hour-glassing membranes. A digital cervical examination was not performed at this time secondary to the bulging membranes and potential of infection. There grossly appears to be a cervix that is thick and dilated to approximately 1 cm. She denies any loss of fluid. There is no vaginal bleeding seen on examination per Dr. Coe. heart tones are obtained and are within normal limits. PAST MEDICAL HISTORY: None. PAST SURGICAL HISTORY: delivery x1. ALLERGIES: NO KNOWN DRUG ALLERGIES. MEDICATIONS: vitamins. SOCIAL HISTORY: Denies any tobacco, alcohol, or illicit drug use. The patient originally is from [place]. She has two living children. Unfortunately, her oldest child, who was born in [place], at age 4 secondary to an unknown cause. There was a known developmental and physical delay. The father of her baby is Carrie, and this is a consanguineous relationship. They have a daughter , Nisreen. Her older niece is Ruba, who has been able to help translate. PAST OBSTETRICAL HISTORY 1. delivery in [place] at 40 weeks' gestation with unknown uterine scar. 2. Two successful vaginal births after delivery at [facility]. 3. A total of two spontaneous ABs. PAST GYNECOLOGICAL HISTORY: She had denied any abnormal Paps or sexually transmitted diseases. FAMILY HISTORY: Unknown. REVIEW OF SYSTEMS: Negative unless otherwise stated. PHYSICAL EXAMINATION VITAL SIGNS: Stable. She is afebrile. GENERAL: This is a well-developed, well-nourished, [place] female in no apparent distress. She is alert and oriented x3. HEENT: Within normal limits. HEART: Regular. No murmurs, rubs. LUNGS: Lungs are clear to auscultation bilaterally. ABDOMEN: Gravid, nontender. LABORATORY: Data reveal that her blood type is O positive, antibody screen is negative. HIV negative. RPR nonreactive, rubella immune. Hepatitis B surface antigen is nonreactive. Her 1-hour GTT is elevated, and she will require a 3-hour GTT. She had an ultrasound by the [facility] MFM department. Ultrasound anatomy was significant for twin A with bilateral clubbed feet and renal pelviectasis. She was discussing further screening with the genetic counselors. ASSESSMENT AND PLAN 1. A 26-year-old G7, P3-0-3-2 with a 22-week 6-day di/di twin gestation. 2. Cervical incompetence. 3. History of prior delivery x1 with two successful vaginal births after section. 4. 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 PLAN 1. We will call the [facility] and transfer the patient to there via helicopter. 2. We will start magnesium sulfate and steroids pending [facility]'s recommendations. TD: 11/11/2017 13:41 REINALDO
== END 2017-11-11 14:35 | disposition short-term general hospital (02) | DRG 782 ==
LOC: WFO 11:52 → FBP 11:54 → WFO 13:06 → FBP 13:07
PROVIDERS: ADMIT Obstetrics & Gynecology; ATTEND Obstetrics & Gynecology
DX: O34.32 Maternal care for cervical incompetence, second trimester (principal); O36.8921 Maternal care for other specified fetal problems, second trimester, fetus 1; O30.042 Twin pregnancy, dichorionic/diamniotic, second trimester; O34.219 Maternal care for unspecified type scar from previous cesarean delivery; Z3A.22 22 weeks gestation of pregnancy
CPT/HCPCS: 81001; 84112; 87086; 99215

== ENCOUNTER 2018-10-20 12:07 | Outpatient (CLI) | payer MEDICAID ==
[2018-10-20 14:19] LABS: BILIRUBIN,URINE NEGATIVE (NEGATIVE); GLUCOSE, URINE (UA) NEGATIVE (NEGATIVE); KETONES,URINE (UA) NEGATIVE (NEGATIVE); LEUKOCYTE ESTERASE, URINE NEGATIVE (NEGATIVE); NITRITE,URINE NEGATIVE (NEGATIVE); PROTEIN,URINE NEGATIVE (NEGATIVE); UROBILINOGEN,URINE 0.2 (NORMAL) E.U./dL (NORMAL)
[2018-10-20 14:42] LABS: CLARITY,URINE CLEAR (CLEAR)
[2018-10-20 15:03] LABS: OCCULT BLOOD,URINE TRACE-LYSE (NEGATIVE)
[2018-10-20 15:24] LABS: BACTERIA,URINE Few /HPF (None Seen); RBC,URINE None Seen /HPF (0-5); SQUAMOUS EPITHELIAL CELL,UR MANY Squamous (<= Few)
== END 2018-10-20 23:59 | disposition home or self-care (01) ==
LOC: LAB.R 12:07
PROVIDERS: ATTEND Obstetrics & Gynecology
DX: R30.0 Dysuria (principal); Z32.01 Encounter for pregnancy test, result positive
CPT/HCPCS: 81001; 87086

== ENCOUNTER 2018-10-27 11:14 | Outpatient (CLI) | payer MEDICAID ==
--- NOTE | 2018-10-29 02:36 | Ultrasound Report ---
Reason: TEST POSITIVE Procedure Date: 10/27/2018 Accession Number: [id number] / [id number] Procedure: US - OB First Trimester CPT Code: FULL RESULT: EXAM: FIRST TRIMESTER OBSTETRIC ULTRASOUND (Less than 11 weeks) EXAM DATE: 10/27/2018 12:50 PM. CLINICAL HISTORY: TEST POSITIVE. LMP: 09/03/2018. COMPARISONS: OB FIRST TRIMESTER 08/30/2017 4:16 PM. TECHNIQUE: Transabdominal and transvaginal ultrasound examination with static image documentation. CLINICAL DATES: EGA 7 weeks 5 days with ALONDRA 06/10/2019 based on LMP. ASSESSMENT: Gestational Sac: Two separate intrauterine gestational sacs are present compatible with dichorionic-diamniotic . Twin A gestational sac is right inferior. Twin B gestational sac is left superior/fundal. Twin A gestational sac measures 14 mm corresponding to 6 weeks 2 days with ALONDRA 06/20/2019. Twin B gestational sac measures 12 mm corresponding to 6 weeks 0 days with ALONDRA of 06/22/2019. Embryo: Unable to measure CRL due to early gestational age. Cardiac activity: Twin A cardiac activity noted on cine although unable to measure due to early gestational age. No cardiac activity detected for twin B on current examination. Yolk sac: Twin A yolk sac measures 3 mm. Twin B yolk sac not seen. Amniotic fluid: Not accurately assessed at this gestational age. Early placenta: Not visible at this gestational age. Other: No perigestational fluid collection demonstrated. MATERNAL STRUCTURES: Uterus: Anteverted. Uterus measures 12.8 x 4.8 x 7.2 cm. Cervix: Closed. Right Ovary/Adnexa: The ovary measures 2.9 x 1.8 x 3.4 cm, volume 9.3 cc. Corpus luteum cyst measuring 1.4 x 1.1 x 1.7 cm. Left Ovary/Adnexa: The ovary measures 2.4 x 1.9 x 2.9 cm, volume 6.9 cc. Corpus luteum cyst measuring 1.6 x 1.6 x 1.8 cm. Dominant follicle measuring 1.3 x 1.0 x 1.3 cm. Free Fluid: None. IMPRESSION: Intrauterine twin gestation with gestational sacs measuring 6 weeks 2 days and 6 weeks 0 days. poles not identified at this time which could be due to early . Cardiac activity noted on cine clips within one gestational sac although viability is too early to assess given early gestational age. Recommend correlation with serial beta-hCG levels and follow-up ultrasound to assess for viability. RADIA
== END 2018-10-27 11:15 | disposition home or self-care (01) ==
LOC: DI 11:14
PROVIDERS: ATTEND Obstetrics & Gynecology
DX: Z32.01 Encounter for pregnancy test, result positive (principal); O30.041 Twin pregnancy, dichorionic/diamniotic, first trimester; Z3A.01 Less than 8 weeks gestation of pregnancy
CPT/HCPCS: 76801; 76817

== ENCOUNTER 2018-11-12 14:20 | Outpatient (CLI) | payer MEDICAID ==
[2018-11-12 17:29] LABS: MUDS CUTOFF CONCENTRATIONS CUTOFF CONC BELOW:
[2018-11-12 17:53] LABS: BILIRUBIN,URINE NEGATIVE (NEGATIVE); GLUCOSE, URINE (UA) NEGATIVE (NEGATIVE); KETONES,URINE (UA) NEGATIVE (NEGATIVE); LEUKOCYTE ESTERASE, URINE NEGATIVE (NEGATIVE); NITRITE,URINE NEGATIVE (NEGATIVE); OCCULT BLOOD,URINE NEGATIVE (NEGATIVE); PH,URINE 7.5 PH (5.0-7.5); PROTEIN,URINE NEGATIVE (NEGATIVE); UROBILINOGEN,URINE 0.2 (NORMAL) E.U./dL (NORMAL)
[2018-11-12 18:02] LABS: AMPHETAMINE SCREEN,URINE NEGATIVE (NEGATIVE); BENZODIAZEPINES SCREEN, URINE NEGATIVE (NEGATIVE); COCAINE SCREEN URINE NEGATIVE (NEGATIVE); METHADONE SCREEN, URINE NEGATIVE (NEGATIVE); METHAMPHETAMINES SCREEN, URINE NEGATIVE (NEGATIVE); OPIATE SCREEN, URINE NEGATIVE (NEGATIVE); OXYCODONE SCREEN, URINE NEGATIVE (NEGATIVE); PROPOXYPHENE SCREEN, URINE NEGATIVE (NEGATIVE); TRICYCLIC ANTIDEPRESSANT,URINE NEGATIVE (NEGATIVE)
[2018-11-12 18:15] LABS: AMORPHOUS SEDIMENT,UR Marked /LPF; BACTERIA,URINE None Seen /HPF (None Seen); CLARITY,URINE CLEAR (CLEAR); RBC,URINE None Seen /HPF (0-5); SQUAMOUS EPITHELIAL CELL,UR MANY Squamous (<= Few)
[2018-11-12 22:21] LABS: TRICHOMONAS VAGINALIS DNA NEGATIVE (NEGATIVE)
== END 2018-11-12 23:59 | disposition home or self-care (01) ==
LOC: LAB.R 14:20
PROVIDERS: ATTEND Obstetrics & Gynecology
DX: Z36.89 Encounter for other specified antenatal screening (principal)
CPT/HCPCS: 80306; 81001; 87086; 87491; 87591; 87661

== ENCOUNTER 2018-11-12 14:39 | Outpatient (CLI) | payer MEDICAID ==
--- NOTE | 2018-11-12 17:16 | Ultrasound Report ---
Reason: TEST POSITIVE,DICHORIONIC DIAMNIOTIC TWI Procedure Date: 11/12/2018 Accession Number: [id number] / [id number] Procedure: US - OB First Trimester CPT Code: FULL RESULT: EXAM: FOLLOW-UP OBSTETRICAL ULTRASOUND - TWINS EXAM DATE: 11/12/2018 04:24 PM. CLINICAL HISTORY: TEST POSITIVE. DICHORIONIC DIAMNIOTIC TWI. COMPARISON: OB FIRST TRIMESTER 10/27/2018 11:25 AM. TECHNIQUE: Real-time sonographic evaluation of the fetus performed by the dredge hand. Multiple sales representative rural power static images were saved for review. DATING: Established EGA 11 weeks 0 days with ALONDRA 06/28/2019 based on LMP. EGA 8 weeks 4 days with ALONDRA 06/20/2019 based on ultrasound 10/27/2018. GENERAL EVALUATION Dichorionic/diamniotic twin . TWIN A: Cardiac activity: 176 bpm. Mean sac diameter: 32.1 mm, 8 weeks 3 days gestational age. [place]-rump length: 18.3 mm, 8 weeks 2 days gestational age. Yolk sac: 5.1 mm. Perigestational fluid collection: 0.7 x 0.4 x 0.6 cm. TWIN B: Cardiac activity: 0 bpm. Mean sac diameter: 20.4 mm, 6 weeks 6 days gestational age. [place]-rump length: None visualized. Yolk sac: 5.6 mm, irregular. Perigestational fluid collection: None. MATERNAL STRUCTURES Uterus: Posterior fibroid 3.6 x 2.5 x 3.0 cm, otherwise unremarkable. Cervix: Small amount of fluid. Right ovary: 3.4 x 1.9 x 2.4 cm, 8.1 cc volume. Unremarkable. Left ovary: 2.9 x 1.8 x 12.2 cm, 6.0 cc volume. Unremarkable. Free fluid: None. IMPRESSION: 1. Dichorionic/diamniotic twin intrauterine with gestational age 8 weeks 4 days based on initial ultrasound 10/27/2018. 2. Twin A: - 8 weeks 2 days gestational age by crown-rump length, with small perigestational hemorrhage noted. 3. Twin B: - Small gestational sac containing only an irregular yolk sac, with no visible embryo or cardiac activity. 4. Posterior uterine fibroid. RADIA
== END 2018-11-12 14:40 | disposition home or self-care (01) ==
LOC: DI 14:39
PROVIDERS: ATTEND Obstetrics & Gynecology
DX: Z32.01 Encounter for pregnancy test, result positive (principal); O30.009 Twin pregnancy, unspecified number of placenta and unspecified number of amniotic sacs, unspecified trimester; Z36.89 Encounter for other specified antenatal screening; Z3A.08 8 weeks gestation of pregnancy
CPT/HCPCS: 36415; 76801; 76802; 76817; 80306; 81001; 81599; 85025; 86762; 86803; 86850; 86900; 86901; 87086; 87340; 87389; 87491; 87591; 87661

== ENCOUNTER 2018-11-12 14:43 | Outpatient (CLI) | payer MEDICAID ==
[2018-11-12 15:02] LABS: BASOPHILS # (AUTO) 0.1 10^3/uL (0.0-0.1); BASOPHILS % (AUTO) 0.6 %; EOSINOPHILS # (AUTO) 0.1 10^3/uL (0.0-0.7); EOSINOPHILS % (AUTO) 0.8 %; HGB - HEMOGLOBIN 13.1 g/dL (12.0-16.0); LYMPHOCYTES # (AUTO) 3.1 10^3/uL (1.5-3.5); LYMPHOCYTES % (AUTO) 29.2 %; MEAN CORPUSCULAR HEMOGLOBIN 29.9 pg (27.0-31.0); MEAN CORPUSCULAR HGB CONC 33.8 g/dL (32.0-36.0); MEAN CORPUSCULAR VOLUME 88.6 fL (81.0-99.0); MEAN PLATELET VOLUME 10.1 fL (7.9-10.8); MONOCYTES # (AUTO) 0.6 10^3/uL (0.0-1.0); MONOCYTES % (AUTO) 5.2 %; NEUTROPHILS # (AUTO) 6.8 10^3/uL (1.5-6.6); NEUTROPHILS % (AUTO) 63.8 %; PLT - PLATELET COUNT 306 10^3/uL (130-450); RED BLOOD COUNT 4.38 10^6/uL (4.20-5.40); RED CELL DISTRIBUTION WIDTH 12.9 % (12.0-15.0); WHITE BLOOD COUNT 10.7 x10^3/uL (4.8-10.8)
[2018-11-13 11:06] LABS: HIV AG/AB 4TH GEN NON-REACTIVE (NON-REACTIVE)
[2018-11-13 11:09] LABS: HEPATITIS B SURFACE ANTIGEN NON-REACTIVE (NON-REACTIVE)
[2018-11-13 12:31] LABS: HEPATITIS C ANTIBODY NON-REACTIVE (NON-REACTIVE)
== END 2018-11-12 14:44 | disposition home or self-care (01) ==
LOC: LAB 14:43
PROVIDERS: ATTEND Obstetrics & Gynecology
DX: Z36.89 Encounter for other specified antenatal screening (principal)
CPT/HCPCS: 36415; 81599; 85025; 86762; 86803; 86850; 86900; 86901; 87340; 87389

== ENCOUNTER 2018-11-28 19:13 | Emergency (ER) | payer MEDICAID ==
[2018-11-28 19:46] LABS: BILIRUBIN,URINE NEGATIVE (NEGATIVE); GLUCOSE, URINE (UA) NEGATIVE (NEGATIVE); KETONES,URINE (UA) NEGATIVE (NEGATIVE); LEUKOCYTE ESTERASE, URINE NEGATIVE (NEGATIVE); NITRITE,URINE NEGATIVE (NEGATIVE); OCCULT BLOOD,URINE NEGATIVE (NEGATIVE); PH,URINE 6.5 PH (5.0-7.5); PROTEIN,URINE NEGATIVE (NEGATIVE); UROBILINOGEN,URINE 0.2 (NORMAL) E.U./dL (NORMAL)
[2018-11-28 20:00] LABS: CLARITY,URINE CLEAR (CLEAR)
--- NOTE | 2018-11-28 20:08 | ED Physician Documentation ---
PD HPI ABD PAIN - Stated complaint Stated Complaint: ABD PX - Chief complaint Chief Complaint: Abd Pain - History obtained from History obtained from: Patient, Other (via translation (using [employer])) - History of Present Illness Timing - onset: Today Timing - duration: Hours Timing - details: Gradual onset, Waxing and waning Pain level now: 8 Quality: Pain Location: Other (across lower abdomen) Radiation: Lower back Improved by: Other (no ameliorating factors) Worsened by: Other (no exacerbating factors) Associated symptoms: No: Fever, Nausea, Vomiting Recently seen: Not recently seen - Additional information Additional information: 12 weeks . Speaks only Thai (translation via [employer]). Patient c/o pain across lower abdomen radiating around to across lower back. Symptoms started this morning, denies h/o similar symptoms. Review of Systems Constitutional: denies: Fever, Chills, Sweats GI: reports: Abdominal Pain. denies: Nausea, Vomiting : reports: Now EGA (12 weeks). denies: Dysuria, Frequency Musculoskeletal: reports: Back pain PD PAST MEDICAL HISTORY - Past Medical History Past Medical History: No Cardiovascular: None Respiratory: None Neuro: None Endocrine/Autoimmune: None GI: None PRINCIPAL DEVELOPER: Miscarriage(s) : None HEENT: None Psych: None Musculoskeletal: None Derm: None - Past Surgical History Past Surgical History: Yes /PRINCIPAL DEVELOPER: section - Present Medications Home Medications: Ambulatory Orders Medication Instructions Recorded Confirmed Naproxen 375 mg PO BID #20 tablet 07/08/17 08/22/17 Acetaminophen [Tylenol] 650 mg PO Q6H PRN #30 tablet 07/25/17 08/22/17 Vit No.129/Iron/FA 1 each PO DAILY #90 tablet 07/25/17 08/22/17 [ Tablet] Vit No.129/Iron/FA 1 each PO DAILY #30 tablet 11/28/18 [ One Daily Tablet] - Allergies Allergies/Adverse Reactions: Allergies Allergy/AdvReac Type Severity Reaction Status Date / Time No Known Drug Allergies Allergy Verified 11/28/18 19:17 - Social History Does the pt smoke?: No Smoking Status: Never smoker Does the pt drink ETOH?: No Does the pt have substance abuse?: No - Immunizations Immunizations are current?: No Immunizations: TDAP >10years/unknown - POLST Patient has POLST: No PD ED PE NORMAL - Vitals Vital signs reviewed: Yes - General General: Alert and oriented X 3, No acute distress, Well developed/nourished - HEENT HEENT: Moist mucous membranes - Neck Neck: Supple, no meningeal sign - Cardiac Cardiac: RRR, No murmur - Respiratory Respiratory: No respiratory distress, Clear bilaterally - Abdomen Abdomen: Normal bowel sounds, Soft, Non tender, Non distended - Back Back: No CVA TTP - Derm Derm: Normal color, Warm and dry - Extremities Extremities: No edema Results - Vitals Vitals: Vital Signs - 24 hr 11/28/18 11/28/18 11/28/18 19:14 20:39 22:35 Temperature 37.0 C 36.9 C Heart Rate 73 74 61 Respiratory 17 17 17 Rate Blood Pressure 107/57 L 109/66 102/62 O2 Saturation 100 98 99 Oxygen O2 Source Room air - Labs Labs: Laboratory Tests 11/28/18 11/28/18 11/28/18 19:35 19:35 20:44 WBC 10.1 RBC 3.92 L Hgb 12.0 Hct 34.5 L MCV 88.0 MCH 30.6 MCHC 34.8 RDW 12.8 Plt Count 280 MPV 9.8 Neut # (Auto) 5.9 Lymph # (Auto) 3.4 [place] # (Auto) 0.7 Eos # (Auto) 0.1 Baso # (Auto) 0.0 Absolute Nucleated RBC 0.00 Nucleated RBC % 0.0 Sodium Potassium Chloride Carbon Dioxide Anion Gap BUN Creatinine Estimated GFR (MDRD) Glucose Calcium HCG, Quant Urine Color YELLOW Urine Clarity CLEAR Urine pH 6.5 Ur Specific [place] 1.010 1.010 Urine Protein NEGATIVE Urine Glucose (UA) NEGATIVE Urine Ketones NEGATIVE Urine Occult Blood NEGATIVE Urine Nitrite NEGATIVE Urine Bilirubin NEGATIVE Urine Urobilinogen 0.2 (NORMAL) Ur Leukocyte Esterase NEGATIVE Ur Microscopic Review NOT INDICATED Urine Culture Comments NOT INDICATED Urine HCG, Qual POSITIVE 11/28/18 11/28/18 20:44 20:44 WBC RBC Hgb Hct MCV MCH MCHC RDW Plt Count MPV Neut # (Auto) Lymph # (Auto) [place] # (Auto) Eos # (Auto) Baso # (Auto) Absolute Nucleated RBC Nucleated RBC % Sodium 138 Potassium 3.2 L Chloride 106 Carbon Dioxide 24 Anion Gap 8.0 BUN 10 Creatinine 0.7 Estimated GFR (MDRD) 101 Glucose 91 Calcium 9.0 HCG, Quant 927811.00 Urine Color Urine Clarity Urine pH Ur Specific [place] Urine Protein Urine Glucose (UA) Urine Ketones Urine Occult Blood Urine Nitrite Urine Bilirubin Urine Urobilinogen Ur Leukocyte Esterase Ur Microscopic Review Urine Culture Comments Urine HCG, Qual - Rads (name of study) first trimester US Radiology: Prelim report reviewed, See rad report PD MEDICAL DECISION MAKING - ED course Complexity details: reviewed old records, reviewed results, re-evaluated patient, considered differential, d/w patient Departure - Departure Disposition: 01 Home, Self Care Clinical Impression: Abdominal pain during in first trimester Condition: Good Instructions: ED Pelvic Pain UKO, ED Preg Established Normal Sxs Follow-Up: TESSA CAMARENA MD, PHD [Physician No Access] - Prescriptions: Vit No.129/Iron/FA [ One Daily Tablet] 1 each PO DAILY #30 tablet Print Language: Thai Discharge Date/Time: 11/28/18 23:32
[2018-11-28 20:25] LABS: HCG UR QUAL POSITIVE
[2018-11-28] MEDS ORDERED: ACETAMINOPHEN 325 MG TABLET PO STA (20:33)
[2018-11-28 20:48] LABS: BASOPHILS % (AUTO) 0.3 %; EOSINOPHILS # (AUTO) 0.1 10^3/uL (0.0-0.7); LYMPHOCYTES # (AUTO) 3.4 10^3/uL (1.5-3.5); LYMPHOCYTES % (AUTO) 33.3 %; MEAN CORPUSCULAR HEMOGLOBIN 30.6 pg (27.0-31.0); MEAN CORPUSCULAR HGB CONC 34.8 g/dL (32.0-36.0); MEAN PLATELET VOLUME 9.8 fL (7.9-10.8); MONOCYTES # (AUTO) 0.7 10^3/uL (0.0-1.0); MONOCYTES % (AUTO) 6.8 %; NEUTROPHILS # (AUTO) 5.9 10^3/uL (1.5-6.6); NEUTROPHILS % (AUTO) 58.2 %; PLT - PLATELET COUNT 280 10^3/uL (130-450); RED BLOOD COUNT 3.92 10^6/uL (4.20-5.40); RED CELL DISTRIBUTION WIDTH 12.8 % (12.0-15.0); WHITE BLOOD COUNT 10.1 x10^3/uL (4.8-10.8)
[2018-11-28 20:57] LABS: CREATININE 0.7 mg/dL (0.4-1.0)
[2018-11-28 22:36] VITALS: BP 102/62
--- NOTE | 2018-11-28 22:43 | Ultrasound Report ---
Reason: , pelvic pain Procedure Date: 11/28/2018 Accession Number: [id number] / [id number] Procedure: US - OB Transvaginal CPT Code: FULL RESULT: EXAM: FIRST TRIMESTER OBSTETRIC ULTRASOUND (Less than 11 weeks) EXAM DATE: 11/28/2018 09:15 PM. CLINICAL HISTORY: Pelvic pain, . LMP: 09/03/2018. COMPARISONS: OB FIRST TRIMESTER 11/12/2018 3:24 PM OB FIRST TRIMESTER 11/28/2018 9:40 PM. TECHNIQUE: Transabdominal and transvaginal ultrasound examination with static image documentation. ASSESSMENT: Gestational Sac: Single intrauterine. Mean gestational sac diameter: 46 mm = 10 weeks 1 day. Embryo: CRL (crown-rump length) 42 mm = 11 weeks 0 days. Cardiac activity: 160 beats per minute. Yolk sac: 5 mm. Amniotic fluid: Within normal limits.. Early placenta: Anterior. Other: No perigestational fluid collection demonstrated. MATERNAL STRUCTURES: Uterus: Anteverted. There is a posterior fundal fibroid measuring 2.5 cm in diameter.. Cervix: Closed. Right Ovary/Adnexa: The ovary measures 2.6 x 1.7 x 2.1 cm, volume 5.5 cc. Unremarkable. Left Ovary/Adnexa: The ovary measures 2.5 x 1.8 x 2.3 cm, volume 5.3 cc. Unremarkable. Free Fluid: None. Other: None. IMPRESSION: 1. Single live intrauterine gestation. [place]-rump length of 4.2 cm corresponds to an estimated gestational age by ultrasound of 11 weeks 0 days. 2. There is a posterior fundal intramural fibroid. 3. No significant adnexal abnormalities are seen. RADIA
--- NOTE | 2018-11-28 22:44 | Ultrasound Report ---
Reason: pelvic pain, Procedure Date: 11/28/2018 Accession Number: [id number] / [id number] Procedure: US - OB First Trimester CPT Code: FULL RESULT: Please see the report for accompanying OB ultrasound.
== END 2018-11-28 23:32 | disposition home or self-care (01) ==
LOC: ED 19:13
DX: O26.891 Other specified pregnancy related conditions, first trimester (principal); R10.30 Lower abdominal pain, unspecified; O99.89 Other specified diseases and conditions complicating pregnancy, childbirth and the puerperium; M54.5 Low back pain; Z3A.12 12 weeks gestation of pregnancy
CPT/HCPCS: 36415; 76801; 76817; 80048; 81003; 81025; 84702; 85025; 99284; A9270; 81001; 87086

== ENCOUNTER 2019-01-11 17:52 | Emergency (ER) | payer MEDICAID ==
--- NOTE | 2019-01-11 20:00 | ED Physician Documentation ---
PD HPI BACK PAIN - Stated complaint Stated Complaint: BACK PAIN - Chief complaint Chief Complaint: Back Pain - History obtained from History obtained from: Patient - History of Present Illness Timing - onset: Last night Timing - details: Gradual onset Pain level now: 8 Location: Lower, Left, Other (midline and left lower back) Quality: Pain Improves with: Nothing Worsened by: Other (no exacerbating factors) Recently seen: Not recently seen - Additional information Additional information: c/o left pelvic and lower back pain since last night. patient is 17 weeks . Bermudian-speaking only, interpretation via [employer]. Took tylenol at 1:30 PM Review of Systems Constitutional: denies: Fever GI: reports: Abdominal Pain (left pelvis). 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 AMBASSADOR: Miscarriage(s) : None HEENT: None Psych: None Musculoskeletal: None Derm: None - Past Surgical History Past Surgical History: Yes /HOSPITALITY AMBASSADOR: section - Present Medications Home Medications: Ambulatory Orders Medication Instructions Recorded Confirmed Naproxen 375 mg PO BID #20 tablet 07/08/17 08/22/17 Acetaminophen [Tylenol] 650 mg PO Q6H PRN #30 tablet 07/25/17 08/22/17 Vit No.129/Iron/FA 1 each PO DAILY #90 tablet 07/25/17 08/22/17 [ Tablet] Vit No.129/Iron/FA 1 each PO DAILY #30 tablet 11/28/18 [ One Daily Tablet] - Allergies Allergies/Adverse Reactions: Allergies Allergy/AdvReac Type Severity Reaction Status Date / Time No Known Drug Allergies Allergy Verified 01/11/19 18:13 - Social History Does the pt smoke?: No Smoking Status: Never smoker Does the pt drink ETOH?: No Does the pt have substance abuse?: No - Immunizations Immunizations are current?: No Immunizations: TDAP >10years/unknown - POLST Patient has POLST: No PD ED PE NORMAL - Vitals Vital signs reviewed: Yes - General General: Alert and oriented X 3, No acute distress, Well developed/nourished - Cardiac Cardiac: RRR, No murmur - Respiratory Respiratory: No respiratory distress - Abdomen Abdomen: Normal bowel sounds, Soft, Non tender - Back Back: No CVA TTP - Derm Derm: Normal color, Warm and dry Results - Vitals Vitals: Vital Signs - 24 hr 01/11/19 22:31 Temperature 36.3 C L Heart Rate 70 Respiratory 18 Rate Blood Pressure 97/49 L O2 Saturation 98 Oxygen O2 Source Room air - Labs Labs: Laboratory Tests 01/11/19 20:00 Urine Color YELLOW Urine Clarity CLEAR Urine pH 6.0 Ur Specific [place] >=1.030 H Urine Protein NEGATIVE Urine Glucose (UA) NEGATIVE Urine Ketones NEGATIVE Urine Occult Blood NEGATIVE Urine Nitrite NEGATIVE Urine Bilirubin NEGATIVE Urine Urobilinogen 0.2 (NORMAL) Ur Leukocyte Esterase NEGATIVE Ur Microscopic Review NOT INDICATED Urine Culture Comments NOT INDICATED - Rads (name of study) OB US Radiology: Prelim report reviewed, See rad report PD MEDICAL DECISION MAKING - ED course Complexity details: reviewed results, re-evaluated patient, considered differential, d/w patient Departure - Departure Disposition: 01 Home, Self Care Clinical Impression: , Pelvic pain during Condition: Good Instructions: ED Care, ED Pelvic Pain Preg UKO 2 or 3 Tri Print Language: Bermudian Discharge Date/Time: 01/11/19 22:33
[2019-01-11] MEDS ORDERED: ACETAMINOPHEN 325 MG TABLET PO STA (20:12)
[2019-01-11 20:14] LABS: BILIRUBIN,URINE NEGATIVE (NEGATIVE); GLUCOSE, URINE (UA) NEGATIVE (NEGATIVE); KETONES,URINE (UA) NEGATIVE (NEGATIVE); LEUKOCYTE ESTERASE, URINE NEGATIVE (NEGATIVE); NITRITE,URINE NEGATIVE (NEGATIVE); OCCULT BLOOD,URINE NEGATIVE (NEGATIVE); PROTEIN,URINE NEGATIVE (NEGATIVE); UROBILINOGEN,URINE 0.2 (NORMAL) E.U./dL (NORMAL)
[2019-01-11 20:15] LABS: CLARITY,URINE CLEAR (CLEAR)
--- NOTE | 2019-01-11 21:53 | Ultrasound Report ---
Reason: 17 weeks , pelvic/back pain Procedure Date: 01/11/2019 Accession Number: [id number] / [id number] Procedure: US - OB Limited CPT Code: Final Report FULL RESULT: EXAM: LIMITED OBSTETRICAL ULTRASOUND EXAM DATE: 01/11/2019 08:56 PM. CLINICAL HISTORY: 17 weeks , pelvic/back pain. COMPARISON: None. TECHNIQUE: Real-time sonographic evaluation of the fetus performed by the space scheduler. Multiple enrollment representative static images were saved for review. DATING: Established EGA 17 weeks 2 days with ALONDRA 06/20/2019. GENERAL EVALUATION Castillo . Cardiac activity: 123 bpm. movement: Visualized. Presentation: Variable Placenta: Anterior and fundal position. No previa Amniotic fluid: Normal. TYLER 13.7 cm. MVP 3.7 cm. MATERNAL STRUCTURES Cervix appears closed and measures 3.5 cm in length by transabdominal ultrasound. Patient reports pain in the left adnexa. Right ovary measures 2.8 x 1.7 x 2.2 cm in volume of 5.4 cc. Blood flow identified in the right ovary. Left ovary measures 3.1 x 1.7 x 2.9 cm and volume of 7.9 cc. Blood flow identified in left ovary on Doppler. IMPRESSION: 1. Castillo live intrauterine with gestational age 17 weeks 2 days based on established ALONDRA. 2. Both ovaries are visualized and are normal in size with blood flow seen bilaterally. Patient reports pain in the left adnexa. 3. Closed cervix. Normal amniotic fluid volume. RADIA
[2019-01-11 22:32] VITALS: BP 97/49
== END 2019-01-11 22:33 | disposition home or self-care (01) ==
LOC: ED 17:52
DX: O99.89 Other specified diseases and conditions complicating pregnancy, childbirth and the puerperium (principal); R10.2 Pelvic and perineal pain; Z3A.17 17 weeks gestation of pregnancy
CPT/HCPCS: 76815; 81003; 99282; 99284; A9270; 81001; 87086

== ENCOUNTER 2019-05-20 10:01 | Outpatient (CLI) | payer MEDICAID ==
[2019-05-20] MEDS ORDERED: BETAMETHASONE 30 MG/5 ML VIAL IM ONE (10:09)
--- NOTE | 2019-06-02 11:01 | PROVIDER PROGRESS NOTE ---
- HPI Chief Complaint: Other (prior Classical uterine incision) - Plan Plan: Pt is being followed by the and is planning to have an early RLTCS. Recieving Beta Methazone to inhance lung maturity.
== END 2019-05-20 10:45 | disposition home or self-care (01) ==
LOC: WFO 10:01 → FBP 10:03 → WFO 10:45
PROVIDERS: ATTEND Obstetrics & Gynecology
DX: O34.219 Maternal care for unspecified type scar from previous cesarean delivery (principal); Z3A.00 Weeks of gestation of pregnancy not specified
CPT/HCPCS: 96372

== ENCOUNTER 2019-05-21 09:54 | Outpatient (CLI) | payer MEDICAID ==
[2019-05-21] MEDS ORDERED: BETAMETHASONE 30 MG/5 ML VIAL IM SCH (10:01)
[2019-05-21 10:52] VITALS: BP 96/53
--- NOTE | 2019-05-21 11:08 | HISTORY & PHYSICAL EXAMINATION ---
Admit History - Visit Reason Visit Reason: Other (28yo at 35 6/7 weeks presents for scheduled betameth injuction. She has planned rpt LTCS in 2 days secondary to prior classical at 23-24 weeks last . She reports decreased movement last night, now normal. No n/v/f/c or dysuria. No bleeding or fluid leak. Rare, mild contraction.) - Risk/History: positive: Previous , High risk (Previous classical c/s at 24 weeks. Maternal obesity) Complications This : positive: Other (See above) Smoking Status: Never smoker - Mother's Labs Mother's Blood Type: positive: Unknown Mother's RH: positive: Unknown Rubella Status: positive: Unknown (Records unavailable; care and delivery planned at .) Meds/Allgy - Home Medications Home Medications: Ambulatory Orders Medication Instructions Recorded Confirmed Acetaminophen [Tylenol] 650 mg PO Q6H PRN #30 tablet 07/25/17 05/21/19 Vit No.129/Iron/Folic 1 each PO DAILY #30 tablet 11/28/18 05/21/19 [ One Daily Tablet] - Allergies Allergies/Adverse Reactions: Allergies Allergy/AdvReac Type Severity Reaction Status Date / Time No Known Drug Allergies Allergy Verified 01/11/19 18:13 Review of Systems - All Other Systems All Other Systems: reports: Other (Negative except as noted) Physical - Abdominal Exam Vital Signs: Temp Pulse Resp BP Pulse Ox 99.0 F 76 18 96/53 L 98 05/21/19 10:49 05/21/19 10:49 05/21/19 10:49 05/21/19 10:49 05/21/19 10:49 Contraction Frequency (min/apart): Rare, not palpable Contraction Intensity: positive: Mild (Abdomen soft, non-tender), Irritability Uterine Resting Tone: positive: Soft - Monitoring Strip Review: positive: Category I - Vaginal Exam Membranes: positive: Membranes intact Plan for Labor - Plan For Labor Plan for Labor: 28yo at 35 6/7 with expected scheduled rpt c/s in 2 days. Betamethasone given as planned. Stable. Precautions discussed. F/U as planned at
== END 2019-05-21 11:00 | disposition home or self-care (01) ==
LOC: WFO 09:54 → FBP 09:57 → WFO 11:00
PROVIDERS: ATTEND Obstetrics & Gynecology
DX: O09.213 Supervision of pregnancy with history of pre-term labor, third trimester (principal); Z3A.35 35 weeks gestation of pregnancy
CPT/HCPCS: 96372; 99212

== ENCOUNTER 2019-07-20 18:48 | Emergency (ER) | payer MEDICAID ==
[2019-07-20 19:22] LABS: BASOPHILS # (AUTO) 0.1 10^3/uL (0.0-0.1); BASOPHILS % (AUTO) 0.7 %; EOSINOPHILS # (AUTO) 0.2 10^3/uL (0.0-0.7); LYMPHOCYTES # (AUTO) 2.9 10^3/uL (1.5-3.5); LYMPHOCYTES % (AUTO) 38.9 %; MEAN CORPUSCULAR HEMOGLOBIN 29.6 pg (27.0-31.0); MEAN CORPUSCULAR HGB CONC 33.4 g/dL (32.0-36.0); MEAN CORPUSCULAR VOLUME 88.6 fL (81.0-99.0); MONOCYTES # (AUTO) 0.6 10^3/uL (0.0-1.0); MONOCYTES % (AUTO) 7.6 %; NEUTROPHILS # (AUTO) 3.8 10^3/uL (1.5-6.6); NEUTROPHILS % (AUTO) 50.5 %; PLT - PLATELET COUNT 341 10^3/uL (130-450); RED BLOOD COUNT 4.39 10^6/uL (4.20-5.40); RED CELL DISTRIBUTION WIDTH 12.7 % (12.0-15.0); WHITE BLOOD COUNT 7.5 x10^3/uL (4.8-10.8)
--- NOTE | 2019-07-20 19:25 | ED Physician Documentation ---
History of Present Illness - Stated complaint Stated Complaint: ABD PX - Chief complaint Chief Complaint: Abd Pain - History obtained from History obtained from: Patient - History of Present Illness Timing: How many weeks ago (4) Pain level max: 6 Pain level now: 6 - Additonal information Additional information: 28-year-old female is approximately 7 weeks status post a at the [facility]. She states that over the past 4 weeks has been developing periumbilical and left lower quadrant abdominal pain. No vaginal bleeding or discharge. No fevers. No nausea or vomiting. Worse with palpation and better with rest. Pain has been increasing recently, so came in for evaluation. 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(s) : None HEENT: None Psych: None Musculoskeletal: None Derm: None - Past Surgical History Past Surgical History: Yes /DIPPER OPERATOR: section - Present Medications Home Medications: Ambulatory Orders Medication Instructions Recorded Confirmed Cephalexin [Keflex] 500 mg PO Q6H #20 capsule 07/20/19 - Allergies Allergies/Adverse Reactions: Allergies Allergy/AdvReac Type Severity Reaction Status Date / Time No Known Drug Allergies Allergy Verified 07/20/19 18:54 - Social History Does the pt smoke?: No Smoking Status: Never smoker Does the pt drink ETOH?: No Does the pt have substance abuse?: No - Immunizations Immunizations are current?: No Immunizations: TDAP >10years/unknown - POLST Patient has POLST: No PD ED PE NORMAL - Vitals Vital signs reviewed: Yes - General General: Alert and oriented X 3, No acute distress - HEENT HEENT: Moist mucous membranes - Neck Neck: Supple, no meningeal sign - Cardiac Cardiac: RRR - Respiratory Respiratory: No respiratory distress, Clear bilaterally - Abdomen Abdomen: Soft, Other (Very small umbilical hernia that is easily reducible. Tender to palpation periumbilical and left lower quadrant. Positive guarding, no rebound.) - Female Female : Pt declined - Back Back: No spinal TTP - Derm Derm: Warm and dry - Extremities Extremities: No edema, No calf tenderness / cord - Neuro Neuro: Alert and oriented X 3 Results - Vitals Vitals: Vital Signs - 24 hr 07/20/19 07/20/19 07/20/19 18:55 19:00 21:32 Temperature 36.4 C L 37.1 C Heart Rate 75 81 56 L Respiratory 16 16 18 Rate Blood Pressure 107/67 104/62 107/67 O2 Saturation 97 100 99 Oxygen O2 Source Room air - Labs Labs: Laboratory Tests 07/20/19 07/20/19 07/20/19 19:15 19:15 20:15 WBC 7.5 RBC 4.39 Hgb 13.0 Hct 38.9 MCV 88.6 MCH 29.6 MCHC 33.4 RDW 12.7 Plt Count 341 MPV 10.0 Neut # (Auto) 3.8 Lymph # (Auto) 2.9 [place] # (Auto) 0.6 Eos # (Auto) 0.2 Baso # (Auto) 0.1 Absolute Nucleated RBC 0.00 Nucleated RBC % 0.0 Sodium 137 Potassium 3.5 Chloride 104 Carbon Dioxide 21 Anion Gap 12.0 BUN 20 Creatinine 0.5 Estimated GFR (MDRD) 148 Glucose 100 Calcium 9.2 Total Bilirubin 0.8 AST 35 ALT 60 Alkaline Phosphatase 78 Total Protein 8.5 H Albumin 4.6 Globulin 3.9 Albumin/Globulin Ratio 1.2 Lipase 31 Urine Color YELLOW Urine Clarity CLEAR Urine pH 6.0 Ur Specific [place] <=1.005 Urine Protein NEGATIVE Urine Glucose (UA) NEGATIVE Urine Ketones NEGATIVE Urine Occult Blood NEGATIVE Urine Nitrite NEGATIVE Urine Bilirubin NEGATIVE Urine Urobilinogen 0.2 (NORMAL) Ur Leukocyte Esterase SMALL H Urine RBC None Seen Urine WBC 6-10 H Ur Squamous Epith Cells NONE SEEN Urine Bacteria None Seen Ur Microscopic Review INDICATED Urine Culture Comments INDICATED - Rads (name of study) CT abdomen pelvis Radiology: Prelim report reviewed, EMP read contemporaneously, See rad report (Expected postoperative appearance after recent section. Otherwise unremarkable CT of the abdomen and pelvis. ) PD MEDICAL DECISION MAKING - ED course Complexity details: reviewed results, re-evaluated patient, considered differential, d/w patient ED course: 28-year-old female with abdominal pain after approximately 7 weeks ago. Possible adhesions? No evidence of endometritis. No evidence of retained products. No evidence of abscess or intra-abdominal infection. Normal appearance of the skin. Does have a UTI and given Rocephin for this, will place on oral antibiotics for home. Discussed the case with Dr. Raines, OB. Patient counseled regarding signs and symptoms for which I believe and urgent re-evaluation would be necessary. Patient with good understanding of and agreement to plan and is comfortable going home at this time This document was made in part using voice recognition software. While efforts are made to proofread this document, sound alike and grammatical errors may occur. Departure - Departure Disposition: 01 Home, Self Care Clinical Impression: Postoperative pain UTI (urinary tract infection) Qualifiers: Urinary tract infection type: acute cystitis Hematuria presence: without hematuria Qualified Code(s): N30.00 - Acute cystitis without hematuria Condition: Good Instructions: ED Post Op Pain, ED UTI Cystitis Female Follow-Up: your,doctor in 1 week [Other] Prescriptions: Cephalexin [Keflex] 500 mg PO Q6H #20 capsule Print Language: Romanian Comments: Take all antibiotics until gone. Return if you worsen. Follow-up with your doctor for further care. The cause of your symptoms is unclear today, but may be related to scar tissue from your surgery. Discharge Date/Time: 07/20/19 22:04
[2019-07-20] MEDS ORDERED: IOVERSOL 320 100 ML VIAL IVP ONE (19:39)
[2019-07-20 19:43] LABS: ALBUMIN 4.6 g/dL (3.2-5.5); ALBUMIN/GLOBULIN RATIO 1.2 (1.0-2.2); BILIRUBIN,TOTAL 0.8 mg/dL (0.2-1.0); CALCIUM 9.2 mg/dL (8.5-10.3); CREATININE 0.5 mg/dL (0.4-1.0); TOTAL PROTEIN 8.5 g/dL (6.7-8.2)
[2019-07-20] MEDS: IOVERSOL 320 100 ML VIAL IVP ONE (20:06)
--- NOTE | 2019-07-20 20:24 | CT Report ---
Reason: LLQ pain s/p 7 weeks ago Procedure Date: 07/20/2019 Accession Number: [id number] / [id number] Procedure: CT - Abdomen/Pelvis W CPT Code: Final Report FULL RESULT: EXAM: CT ABDOMEN AND PELVIS EXAM DATE: 07/20/2019 08:02 PM. CLINICAL HISTORY: Left lower quadrant pain status post 7 weeks ago. COMPARISONS: None. TECHNIQUE: Routine helical CT imaging was performed through the abdomen and pelvis. IV contrast: Optiray-320, 100 cc. Enteric contrast: No. Reconstructions: Coronal and sagittal. In accordance with CT protocol optimization, one or more of the following dose reduction techniques were utilized for this exam: automated exposure control, adjustment of mA and/or KV based on patient size, or use of iterative reconstructive technique. FINDINGS: Lung Bases: Unremarkable. Liver: Normal. No masses. Gallbladder/Bile Ducts: Unremarkable. Spleen: Normal. Pancreas: Normal. Adrenal Glands: Normal. Kidneys: Normal. No masses or hydronephrosis. Peritoneal Cavity/Bowel: Bowel is normal. Small periumbilical fat-containing hernia with defect measuring 1.5 cm. No free fluid, free air or adenopathy. No masses or acute inflammatory process. The appendix is well visualized and normal. Pelvic Organs: Heterogeneous uterus consistent with recent state. Adnexa are unremarkable. Incisional scar along the low anterior pelvic wall. No fluid collections along the incision or in the pelvis. Vasculature: No aneurysms or other significant abnormality. Bones: No significant abnormality. Other: None. IMPRESSION: Expected postoperative appearance after recent section. Otherwise unremarkable CT of the abdomen and pelvis. RADIA
[2019-07-20 20:35] LABS: BILIRUBIN,URINE NEGATIVE (NEGATIVE); GLUCOSE, URINE (UA) NEGATIVE (NEGATIVE); KETONES,URINE (UA) NEGATIVE (NEGATIVE); LEUKOCYTE ESTERASE, URINE SMALL (NEGATIVE); NITRITE,URINE NEGATIVE (NEGATIVE); OCCULT BLOOD,URINE NEGATIVE (NEGATIVE); PROTEIN,URINE NEGATIVE (NEGATIVE); UROBILINOGEN,URINE 0.2 (NORMAL) E.U./dL (NORMAL)
[2019-07-20 20:41] LABS: CLARITY,URINE CLEAR (CLEAR)
[2019-07-20 20:45] LABS: BACTERIA,URINE None Seen /HPF (None Seen); RBC,URINE None Seen /HPF (0-5); SQUAMOUS EPITHELIAL CELL,UR NONE SEEN (<= Few)
[2019-07-20] MEDS: cefTRIAXone 1 GM VIAL IVP STA (21:27)
[2019-07-20 21:33] VITALS: BP 107/67
== END 2019-07-20 22:04 | disposition home or self-care (01) ==
LOC: ED 18:48
DX: G89.18 Other acute postprocedural pain (principal); R10.33 Periumbilical pain; R10.32 Left lower quadrant pain; N30.00 Acute cystitis without hematuria; K42.9 Umbilical hernia without obstruction or gangrene
CPT/HCPCS: 36415; 74177; 80053; 81001; 83690; 85025; 87086; 96374; 99284; Q9967; 81003

== ENCOUNTER 2021-09-28 08:00 | Outpatient (CLI) | payer MEDICAID ==
[2021-09-28 16:33] LABS: BILIRUBIN,URINE NEGATIVE (NEGATIVE); CLARITY,URINE CLEAR (CLEAR); GLUCOSE, URINE (UA) NEGATIVE (NEGATIVE); KETONES,URINE (UA) NEGATIVE (NEGATIVE); LEUKOCYTE ESTERASE, URINE NEGATIVE (NEGATIVE); NITRITE,URINE NEGATIVE (NEGATIVE); OCCULT BLOOD,URINE NEGATIVE (NEGATIVE); PROTEIN,URINE NEGATIVE (NEGATIVE); UROBILINOGEN,URINE 0.2 (NORMAL) E.U./dL (NORMAL)
[2021-09-28 16:54] LABS: BACTERIA,URINE Few /HPF (None Seen); RBC,URINE None Seen /HPF (0-5); SQUAMOUS EPITHELIAL CELL,UR FEW Squamous (<= Few); WBC,URINE 0-3 /HPF (0-5)
== END 2021-09-28 23:59 | disposition home or self-care (01) ==
LOC: LAB 08:00
PROVIDERS: ATTEND Obstetrics & Gynecology
DX: Z32.01 Encounter for pregnancy test, result positive (principal)
CPT/HCPCS: 81001; 87086

== ENCOUNTER 2022-01-10 11:08 | Emergency (ER) | payer MEDICAID ==
[2022-01-10 11:34] LABS: BASOPHILS # (AUTO) 0.1 10^3/uL (0.0-0.1); BASOPHILS % (AUTO) 0.6 %; EOSINOPHILS # (AUTO) 0.1 10^3/uL (0.0-0.7); EOSINOPHILS % (AUTO) 1.1 %; HGB - HEMOGLOBIN 10.7 g/dL (12.0-16.0); LYMPHOCYTES # (AUTO) 3.2 10^3/uL (1.5-3.5); LYMPHOCYTES % (AUTO) 37.9 %; MEAN CORPUSCULAR HEMOGLOBIN 23.1 pg (27.0-31.0); MEAN CORPUSCULAR HGB CONC 29.7 g/dL (32.0-36.0); MEAN CORPUSCULAR VOLUME 77.8 fL (81.0-99.0); MEAN PLATELET VOLUME 9.8 fL (7.9-10.8); MONOCYTES # (AUTO) 0.5 10^3/uL (0.0-1.0); MONOCYTES % (AUTO) 6.4 %; NEUTROPHILS # (AUTO) 4.5 10^3/uL (1.5-6.6); NEUTROPHILS % (AUTO) 53.8 %; PLT - PLATELET COUNT 401 10^3/uL (130-450); RED BLOOD COUNT 4.63 10^6/uL (4.20-5.40); RED CELL DISTRIBUTION WIDTH 18.6 % (12.0-15.0); WHITE BLOOD COUNT 8.4 x10^3/uL (4.8-10.8)
[2022-01-10 11:47] LABS: ALBUMIN 4.3 g/dL (3.2-5.5); ALBUMIN/GLOBULIN RATIO 1.2 (1.0-2.2); BILIRUBIN,TOTAL 0.3 mg/dL (0.2-1.0); CALCIUM 9.2 mg/dL (8.5-10.3); CREATININE 0.5 mg/dL (0.4-1.0); POTASSIUM 3.4 mmol/L (3.5-5.0)
--- NOTE | 2022-01-10 13:41 | ED Physician Documentation ---
History of Present Illness - Stated complaint Stated Complaint: ABD/BACK PX - Chief complaint Chief Complaint: Abd Pain - Additonal information Additional information: 31-year-old female presents emergency department for evaluation of bilateral lower pelvic pain. Symptoms began this morning. They are intermittent. She is unsure if she is . LMP 11/30/2021. She denies any vaginal bleeding or dysuria. No fevers nausea or vomiting. Patient denies taking any medications. Denies any pertinent past medical history. She does have a history of x2 History is somewhat limited as patient is mostly Serbian-speaking but i nterpreter was used. Review of Systems Constitutional: reports: Reviewed and negative Cardiac: reports: Reviewed and negative Respiratory: reports: Reviewed and negative GI: reports: Abdominal Pain. denies: Nausea, Vomiting, Constipation, Diarrhea : reports: LMP (11/30/2021). 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) : None HEENT: None Psych: None Musculoskeletal: None Derm: None - Past Surgical History Past Surgical History: Yes /ACCOUNT DIRECTOR: section - Present Medications Home Medications: Ambulatory Orders Medication Instructions Recorded Confirmed cephALEXin [Keflex] 500 mg PO Q6H #20 capsule 07/20/19 cephALEXin [Keflex] 500 mg PO BID #14 cap 01/10/22 - Allergies Allergies/Adverse Reactions: Allergies Allergy/AdvReac Type Severity Reaction Status Date / Time No Known Drug Allergies Allergy Verified 10/18/21 05:12 - Social History Does the pt smoke?: No Smoking Status: Never smoker Does the pt drink ETOH?: No Does the pt have substance abuse?: No - Immunizations Immunizations are current?: No Immunizations: TDAP >10years/unknown - POLST Patient has POLST: No PD ED PE NORMAL - General General: Alert and oriented X 3, No acute distress - HEENT HEENT: PERRL - Neck Neck: Supple, no meningeal sign, No adenopathy - Cardiac Cardiac: RRR, No murmur - Respiratory Respiratory: No respiratory distress, Clear bilaterally - Abdomen Abdomen: Normal bowel sounds, Soft. No: Non tender (Mild nonperitoneal bilateral lower pelvic pain. Patient does have mildly obese body habitus as well as a large pannus limiting exam) - Back Back: No CVA TTP, No spinal TTP - Derm Derm: Normal color, Warm and dry, No rash - Extremities Extremities: No deformity, No tenderness to palpate, Normal ROM s pain - Neuro Neuro: Alert and oriented X 3, sash assembler 2-12 intact Eye Opening: Spontaneous Motor: Obeys Commands Verbal: Oriented GCS Score: 15 Results - Vitals Vitals: Vital Signs - 24 hr 01/10/22 01/10/22 01/10/22 11:15 13:18 15:00 Temperature 36.0 C L Heart Rate 78 76 82 Respiratory 16 18 18 Rate Blood Pressure 119/59 L 134/110 H 102/69 O2 Saturation 100 100 100 Oxygen O2 Source Room air - Labs Labs: Laboratory Tests 01/10/22 01/10/22 01/10/22 11:21 11:23 11:25 WBC 8.4 RBC 4.63 Hgb 10.7 L Hct 36.0 L MCV 77.8 L MCH 23.1 L MCHC 29.7 L RDW 18.6 H Plt Count 401 MPV 9.8 Neut # (Auto) 4.5 Lymph # (Auto) 3.2 [place] # (Auto) 0.5 Eos # (Auto) 0.1 Baso # (Auto) 0.1 Absolute Nucleated RBC 0.00 Nucleated RBC % 0.0 Sodium Potassium Chloride Carbon Dioxide Anion Gap BUN Creatinine Estimated GFR (MDRD) Glucose Calcium Total Bilirubin AST ALT Alkaline Phosphatase Total Protein Albumin Globulin Albumin/Globulin Ratio Lipase HCG, Quant 9363.00 Urine Color LT. YELLOW Urine Clarity CLOUDY Urine pH 6.0 Ur Specific [place] 1.025 Urine Protein NEGATIVE Urine Glucose (UA) NEGATIVE Urine Ketones NEGATIVE Urine Occult Blood NEGATIVE Urine Nitrite NEGATIVE Urine Bilirubin NEGATIVE Urine Urobilinogen 0.2 (NORMAL) Ur Leukocyte Esterase NEGATIVE Urine RBC None Seen Urine WBC 4-5 Ur Squamous Epith Cells FEW Squamous Amorphous Sediment Moderate Urine Bacteria Moderate H Ur Microscopic Review INDICATED Urine Culture Comments NOT INDICATED Urine HCG, Qual POSITIVE 01/10/22 11:25 WBC RBC Hgb Hct MCV MCH MCHC RDW Plt Count MPV Neut # (Auto) Lymph # (Auto) [place] # (Auto) Eos # (Auto) Baso # (Auto) Absolute Nucleated RBC Nucleated RBC % Sodium 135 Potassium 3.4 L Chloride 105 Carbon Dioxide 23 Anion Gap 7.0 BUN 14 Creatinine 0.5 Estimated GFR (MDRD) 145 Glucose 121 H Calcium 9.2 Total Bilirubin 0.3 AST 20 ALT 21 Alkaline Phosphatase 64 Total Protein 8.0 Albumin 4.3 Globulin 3.7 Albumin/Globulin Ratio 1.2 Lipase 30 HCG, Quant Urine Color Urine Clarity Urine pH Ur Specific [place] Urine Protein Urine Glucose (UA) Urine Ketones Urine Occult Blood Urine Nitrite Urine Bilirubin Urine Urobilinogen Ur Leukocyte Esterase Urine RBC Urine WBC Ur Squamous Epith Cells Amorphous Sediment Urine Bacteria Ur Microscopic Review Urine Culture Comments Urine HCG, Qual PD MEDICAL DECISION MAKING - ED course Complexity details: reviewed results, re-evaluated patient, considered differential, d/w patient ED course: 31-year-old female presents emergency department for evaluation of a few days lower pelvic pain. No fevers nausea or vomiting. She is uncertain if . Her last menstrual period was 11/30/2021. She is indeed today. A1 Here in the emergency department we did obtain a CBC and electrolytes Without any significant worrisome abnormalities. An OB ultrasound did reveal a intrauterine with a gestational and yolk sac measuring at approximately 5 weeks 4 days. There is a small associated implantation bleed. She does have findings of an infection in her urine And will be started on Keflex. Prescription sent to [facility]. I am giving her the name of our local OB provider for follow-up however she has historically delivered her babies in [place]. Emergent return precautions for first trimester complications was discussed utilizing the maint mechanic. Departure - Departure Disposition: 01 Home, Self Care Clinical Impression: Intrauterine , incidental, Acute cystitis during in first trimester Condition: Stable Record reviewed to determine appropriate education?: Yes Instructions: ED Preg Established Normal Sxs Follow-Up: Alvin Curtis MD [Provider Admit Priv/Credential] - Prescriptions: cephALEXin [Keflex] 500 mg PO BID #14 cap Comments: You are seen today in the emergency department because you have had a few days of lower pelvic pain. You are indeed . The ultrasound shows that you are approximately 5 weeks 4 days . However you do have a urinary tract infection and these are always treated in early . [facility] [place]. It is important that you establish with an OB by at least 10 weeks. I also make the recommendation that you begin taking a daily . Reasons for you to return to the emergency department would be the development of any sudden severe lower abdominal pain, heavy vaginal bleeding or saturating 1 pad or tampon an hour for 4 more hours or any fainting episodes sudden chest pain or shortness of air.
[2022-01-10 14:00] LABS: BILIRUBIN,URINE NEGATIVE (NEGATIVE); GLUCOSE, URINE (UA) NEGATIVE (NEGATIVE); KETONES,URINE (UA) NEGATIVE (NEGATIVE); LEUKOCYTE ESTERASE, URINE NEGATIVE (NEGATIVE); NITRITE,URINE NEGATIVE (NEGATIVE); OCCULT BLOOD,URINE NEGATIVE (NEGATIVE); PROTEIN,URINE NEGATIVE (NEGATIVE); UROBILINOGEN,URINE 0.2 (NORMAL) E.U./dL (NORMAL)
[2022-01-10 14:01] LABS: CLARITY,URINE CLOUDY (CLEAR)
[2022-01-10 14:02] LABS: HCG UR QUAL POSITIVE
[2022-01-10 14:08] LABS: BACTERIA,URINE Moderate /HPF (None Seen); RBC,URINE None Seen /HPF (0-5); SQUAMOUS EPITHELIAL CELL,UR FEW Squamous (<= Few)
[2022-01-10 14:09] LABS: AMORPHOUS SEDIMENT,UR Moderate /LPF
--- NOTE | 2022-01-10 16:30 | Ultrasound Report ---
PROCEDURE: OB First Trimester w/TV INDICATIONS: Lower pelvic pain OUTSIDE/PRIOR DATING DATA: Last menstrual period (LMP): 11/30/2021. LMP-based estimated date of delivery (ALONDRA): 09/06/2022. First dating scan (date and location): 01/10/2022. Estimated date of delivery (ALONDRA) from first dating scan: Not applicable. TECHNIQUE: Real-time scanning was performed of the fetus and maternal pelvic organs, with image documentation. Endovaginal scanning was also performed to better visualize the fetus and maternal ovaries. COMPARISON: None FINDINGS: Vertically oriented uterus contains a tiny fundal fluid collection with surrounding decidual response . Mean gestational sac diameter is 0.79 cm corresponding to a 5 week 4 day gestation. A tiny focus salgado ggestive of a yolk sac within the gestational sac is seen. No pole identified. There is a small implantation bleed also within the fundal endometrium but not immediately adjacent t o the gestational sac. A small amount of echogenic material is seen in the lower uterine segment endo metrium and a trace amount in the cervix. The right ovary contains a peripherally vascular 3.0 cm cyst consistent with a corpus luteum. The lef t ovary has a normal follicular echotexture. Trace fluid in the cul-de-sac. IMPRESSION: 1. Findings of an early intrauterine . No pole is identified and continued follow-up w ith beta hCG levels and repeat imaging in 2-3 weeks to confirm viability is recommended. 2. Findings of an implantation bleed also within the fundal endometrium. 3. Right ovarian corpus luteum. 4. Preliminary results given by the fixed income portfolio manager to the ordering provider immediately following the st udy. Reviewed by: Jessi Mcneil MD on 01/10/2022 4:29 PM PDT Approved by: Jessi Mcneil MD on 01/10/2022 4:29 PM PDT Station ID: [id number]
[2022-01-10 16:59] VITALS: BP 112/65
== END 2022-01-10 16:57 | disposition home or self-care (01) ==
LOC: ED 11:08
DX: O23.11 Infections of bladder in pregnancy, first trimester (principal); Z3A.01 Less than 8 weeks gestation of pregnancy
CPT/HCPCS: 36415; 80053; 81001; 81003; 81025; 83690; 84702; 85025; 87086; 99282; 99284

== ENCOUNTER 2022-01-16 10:00 | Outpatient (CLI) | payer MEDICAID ==
[2022-01-17 12:41] LABS: BILIRUBIN,URINE NEGATIVE (NEGATIVE); GLUCOSE, URINE (UA) NEGATIVE (NEGATIVE); KETONES,URINE (UA) NEGATIVE (NEGATIVE); LEUKOCYTE ESTERASE, URINE NEGATIVE (NEGATIVE); NITRITE,URINE NEGATIVE (NEGATIVE); OCCULT BLOOD,URINE NEGATIVE (NEGATIVE); PH,URINE 7.5 PH (5.0-7.5); PROTEIN,URINE NEGATIVE (NEGATIVE); UROBILINOGEN,URINE 0.2 (NORMAL) E.U./dL (NORMAL)
[2022-01-17 12:52] LABS: CLARITY,URINE CLEAR (CLEAR)
[2022-01-17 12:55] LABS: BACTERIA,URINE Few /HPF (None Seen); RBC,URINE 0-5 /HPF (0-5); SQUAMOUS EPITHELIAL CELL,UR FEW Squamous (<= Few); WBC,URINE 0-3 /HPF (0-5)
== END 2022-01-16 23:59 | disposition home or self-care (01) ==
LOC: LAB.WC 10:00
PROVIDERS: ATTEND Obstetrics & Gynecology
DX: O09.90 Supervision of high risk pregnancy, unspecified, unspecified trimester (principal)
CPT/HCPCS: 81001; 87086

== ENCOUNTER 2022-01-29 06:56 | Outpatient (CLI) | payer MEDICAID ==
[2022-01-29 07:58] LABS: BASOPHILS % (AUTO) 0.4 %; EOSINOPHILS # (AUTO) 0.1 10^3/uL (0.0-0.7); EOSINOPHILS % (AUTO) 0.9 %; HCT - HEMATOCRIT 36.3 % (37.0-47.0); HGB - HEMOGLOBIN 11.6 g/dL (12.0-16.0); LYMPHOCYTES # (AUTO) 2.1 10^3/uL (1.5-3.5); LYMPHOCYTES % (AUTO) 30.1 %; MEAN CORPUSCULAR HEMOGLOBIN 24.7 pg (27.0-31.0); MEAN CORPUSCULAR VOLUME 77.4 fL (81.0-99.0); MEAN PLATELET VOLUME 9.8 fL (7.9-10.8); MONOCYTES # (AUTO) 0.6 10^3/uL (0.0-1.0); MONOCYTES % (AUTO) 8.9 %; NEUTROPHILS # (AUTO) 4.1 10^3/uL (1.5-6.6); NEUTROPHILS % (AUTO) 59.4 %; PLT - PLATELET COUNT 326 10^3/uL (130-450); RED BLOOD COUNT 4.69 10^6/uL (4.20-5.40); RED CELL DISTRIBUTION WIDTH 22.7 % (12.0-15.0); WHITE BLOOD COUNT 6.8 x10^3/uL (4.8-10.8)
[2022-01-29 08:19] LABS: PLATELET ESTIMATE, MANUAL NORMAL (130-450,000) (NORMAL); PLATELET MORPHOLOGY NORMAL APPEARANCE (NORMAL); RBC MORPHOLOGY (MULTIPLE) 2+ ANISOCYTOSIS (NORMAL); SLIDE REVIEW? Indicated
--- NOTE | 2022-01-29 10:55 | Ultrasound Report ---
PROCEDURE: OB First Trimester INDICATIONS: POSITIVE TEST OUTSIDE/PRIOR DATING DATA: Last menstrual period (LMP): 11/30/2021. LMP-based estimated date of delivery (ALONDRA): 09/06/2022. Estimated date of delivery (ALONDRA) from current study: 09/09/2022. TECHNIQUE: Real-time scanning was performed of the fetus and maternal pelvic organs, with image documentation. COMPARISON: 01/10/2022. FINDINGS: Embryo: Present, crown-rump length of 1.7 cm corresponding to a gestational age of 8 weeks 1 day Heart rate: 155 Small subchorionic hemorrhage measuring 1.5 cm. Measurement variability in dating: +/- 4 weeks by LMP, +/- 7 days by mean sac diameter (use before 6 weeks gestation if crown-rump length not able to be measured), +/- 5 days by crown-rump length (6-12 weeks gestation). Maternal organs: Ovaries are unremarkable. A right corpus luteum is present. IMPRESSION: Single living intrauterine . Gestational age by crown-rump length of 8 weeks 1 day. Reviewed by: Anjel Patel MD on 01/29/2022 10:54 AM PST Approved by: Anjel Patel MD on 01/29/2022 10:54 AM PST Station ID: [id number]
[2022-01-30 04:08] LABS: HBsAG SCREEN Negative (Negative); HCV AB <0.1 s/co ratio (0.0-0.9)
[2022-01-30 11:10] LABS: VARICELLA-ZOSTER AB IGG 838 index (Immune >165)
[2022-01-31 00:07] LABS: HIV SCREEN 4TH GENERATION Non Reactive (Non Reactive)
== END 2022-01-29 06:57 | disposition home or self-care (01) ==
LOC: DI 06:56
PROVIDERS: ATTEND Obstetrics & Gynecology
DX: O09.91 Supervision of high risk pregnancy, unspecified, first trimester (principal); Z3A.08 8 weeks gestation of pregnancy
CPT/HCPCS: 36415; 85025; 86592; 86762; 86787; 86803; 86850; 86900; 86901; 87340; 87389

== ENCOUNTER 2022-02-22 08:00 | Outpatient (CLI) | payer MEDICAID ==
[2022-02-23 00:10] LABS: CHLAMYDIA TRACHOMATIS DNA NEGATIVE (NEGATIVE); NEISSERIA GONORRHOEAE DNA NEGATIVE (NEGATIVE); TRICHOMONAS VAGINALIS DNA NEGATIVE (NEGATIVE)
== END 2022-02-22 23:59 | disposition home or self-care (01) ==
LOC: LAB 08:00
PROVIDERS: ATTEND Obstetrics & Gynecology
DX: Z11.3 Encounter for screening for infections with a predominantly sexual mode of transmission (principal)
CPT/HCPCS: 87491; 87591; 87661

== ENCOUNTER 2022-03-22 08:00 | Outpatient (CLI) | payer MEDICAID ==
[2022-03-23 01:56] LABS: CHLAMYDIA TRACHOMATIS DNA NEGATIVE (NEGATIVE); NEISSERIA GONORRHOEAE DNA NEGATIVE (NEGATIVE); TRICHOMONAS VAGINALIS DNA NEGATIVE (NEGATIVE)
== END 2022-03-22 23:59 | disposition home or self-care (01) ==
LOC: LAB.WC 08:00
PROVIDERS: ATTEND Nurse Practitioner
DX: O09.90 Supervision of high risk pregnancy, unspecified, unspecified trimester (principal); R10.2 Pelvic and perineal pain
CPT/HCPCS: 87491; 87591; 87661

== ENCOUNTER 2022-04-08 12:22 | Outpatient (CLI) | payer MEDICAID ==
[2022-04-08 13:04] LABS: BILIRUBIN,URINE NEGATIVE (NEGATIVE); GLUCOSE, URINE (UA) NEGATIVE (NEGATIVE); KETONES,URINE (UA) NEGATIVE (NEGATIVE); LEUKOCYTE ESTERASE, URINE NEGATIVE (NEGATIVE); NITRITE,URINE NEGATIVE (NEGATIVE); OCCULT BLOOD,URINE NEGATIVE (NEGATIVE); PH,URINE 6.5 PH (5.0-7.5); PROTEIN,URINE NEGATIVE (NEGATIVE); UROBILINOGEN,URINE 0.2 (NORMAL) E.U./dL (NORMAL)
[2022-04-08 13:05] LABS: CLARITY,URINE CLEAR (CLEAR)
[2022-04-08 13:13] LABS: BACTERIA,URINE Moderate /HPF (None Seen); RBC,URINE 0-5 /HPF (0-5); SQUAMOUS EPITHELIAL CELL,UR MANY Squamous (<= Few); WBC,URINE 0-3 /HPF (0-5)
== END 2022-04-08 12:23 | disposition home or self-care (01) ==
LOC: LAB 12:22
PROVIDERS: ATTEND Nurse Practitioner
DX: O09.90 Supervision of high risk pregnancy, unspecified, unspecified trimester (principal); Z36.89 Encounter for other specified antenatal screening
CPT/HCPCS: 81001; 81599; 82105; 87086

== ENCOUNTER 2022-04-24 07:03 | Outpatient (CLI) | payer MEDICAID ==
--- NOTE | 2022-04-24 16:29 | Ultrasound Report ---
PROCEDURE: OB Detailed Eval INDICATIONS: SUPERVISION OF OUTSIDE/PRIOR DATING DATA: Last menstrual period (LMP): 11/30/2021. LMP-based estimated date of delivery (ALONDRA): 09/06/2022. First dating scan (date and location): 01/10/2022. Estimated date of delivery (ALONDRA) from first dating scan: 09/09/2022. TECHNIQUE: Real-time scanning was performed of the fetus, with image documentation and biometric measurements. Endovaginal scanning: No COMPARISON: Ultrasound dated 01/29/2022 FINDINGS: General: A single living intrauterine gestation is present. Presentation: Breech Placenta: No evidence of placenta previa Amniotic fluid index: 12.4 cm, 27th percentile for gestational age. heart rate: 155 beats per minute. Maternal cervical canal: 4.4 cm long; normal length is 2.5 cm or more. biometrics: Biparietal diameter: 44 mm; 19 weeks 2 days Head circumference: 170 mm; 19 weeks 4 days Abdominal circumference: 145 mm; 19 weeks 6 days Femur length: 33 mm; 20 weeks 1 day Estimated gestational age from initial scan: 20 weeks 2 days Composite gestational age from present scan: 19 weeks 5 days Estimated weight and percentile: 321 g, which is at the 26th percentile for gestational age Measurement variability in biometric dating: +/- 10 days from 12-20 weeks gestation, +/- 2 weeks from 20-30 weeks gestation, +/- 3 weeks at 30 weeks gestation or later. Anatomic survey: Neuro: Ventricles are normal at less than 10 mm. Cisterna magna is normal at 3-11 mm. Cerebellum i s normal in size and morphology. Nuchal skin fold: Normal at less than 6 mm between 14 and 20 weeks gestational age. Face: Nose and lips, facial profile are normal. Spine: No evidence for spina bifida. Heart: 4-chambered heart is present, with normal ventricular outflow tracts. Diaphragm: Diaphragm is intact. Stomach: Left-sided stomach is present. Kidneys: No hydronephrosis. Normal is less than 5 mm in 2nd trimester, less than 7 mm in 3rd trimester. Cord: 3 vessel cord has orthotopic insertion. Bladder: Normal in size. Extremities: All 4 extremities are visualized. IMPRESSION: 1. Single living intrauterine gestation. 2. Normal survey of anatomy. Reviewed by: Rodri Montoya MD on 04/24/2022 4:27 PM PST Approved by: Rodri Montoya MD on 04/24/2022 4:27 PM PST Station ID: [id number]
== END 2022-04-24 07:04 | disposition home or self-care (01) ==
LOC: DI 07:03
PROVIDERS: ATTEND Nurse Practitioner
DX: O09.92 Supervision of high risk pregnancy, unspecified, second trimester (principal); Z3A.19 19 weeks gestation of pregnancy; Z36.89 Encounter for other specified antenatal screening

== ENCOUNTER 2022-05-31 09:20 | Outpatient (CLI) | payer MEDICAID ==
[2022-05-31 10:36] LABS: HCT - HEMATOCRIT 33.5 % (37.0-47.0); HGB - HEMOGLOBIN 11.3 g/dL (12.0-16.0); MEAN CORPUSCULAR HEMOGLOBIN 31.3 pg (27.0-31.0); MEAN CORPUSCULAR HGB CONC 33.7 g/dL (32.0-36.0); MEAN CORPUSCULAR VOLUME 92.8 fL (81.0-99.0); MEAN PLATELET VOLUME 9.7 fL (7.9-10.8); RED BLOOD COUNT 3.61 10^6/uL (4.20-5.40); RED CELL DISTRIBUTION WIDTH 13.9 % (12.0-15.0); WHITE BLOOD COUNT 7.4 x10^3/uL (4.8-10.8)
== END 2022-05-31 09:21 | disposition home or self-care (01) ==
LOC: LAB 09:20
PROVIDERS: ATTEND Obstetrics & Gynecology
DX: Z34.90 Encounter for supervision of normal pregnancy, unspecified, unspecified trimester (principal); Z36.89 Encounter for other specified antenatal screening
CPT/HCPCS: 36415; 82950; 85027

== ENCOUNTER 2022-06-21 08:39 | Outpatient (CLI) | payer MEDICAID ==
[2022-06-21 09:21] LABS: GTT GLUCOSE,FASTING 94 mg/dL (70-100)
== END 2022-06-21 08:40 | disposition home or self-care (01) ==
LOC: LAB 08:39
PROVIDERS: ATTEND Obstetrics & Gynecology
DX: O99.810 Abnormal glucose complicating pregnancy (principal)
CPT/HCPCS: 36415; 82951; 82952

== ENCOUNTER 2022-06-24 18:39 | Outpatient (CLI) | payer MEDICAID ==
[2022-06-24 18:55] VITALS: BP 101/58
[2022-06-24 19:40] LABS: BILIRUBIN,URINE NEGATIVE (NEGATIVE); GLUCOSE, URINE (UA) NEGATIVE (NEGATIVE); KETONES,URINE (UA) NEGATIVE (NEGATIVE); LEUKOCYTE ESTERASE, URINE NEGATIVE (NEGATIVE); NITRITE,URINE NEGATIVE (NEGATIVE); OCCULT BLOOD,URINE NEGATIVE (NEGATIVE); PH,URINE 6.5 PH (5.0-7.5); PROTEIN,URINE NEGATIVE (NEGATIVE); UROBILINOGEN,URINE 0.2 (NORMAL) E.U./dL (NORMAL)
[2022-06-24 19:42] LABS: RUPTURE OF MEMBRANES PLUS NEGATIVE (NEGATIVE)
[2022-06-24 19:50] LABS: BACTERIA,URINE Many /HPF (None Seen); CLARITY,URINE CLEAR (CLEAR); RBC,URINE None Seen /HPF (0-5); SQUAMOUS EPITHELIAL CELL,UR MANY Squamous (<= Few); WBC,URINE 0-3 /HPF (0-5)
--- NOTE | 2022-06-24 20:24 | PROVIDER PROGRESS NOTE ---
- HPI Chief Complaint: Leakage of vaginal fluid Current : Vital Signs Temperature 98.2 F 06/24/22 18:48 Heart Rate 82 06/24/22 18:48 Respiratory Rate 16 06/24/22 18:48 Blood Pressure 101/58 L 06/24/22 18:48 Temperature 98.2 F 06/24/22 18:48 Heart Rate 82 06/24/22 18:48 Respiratory Rate 16 06/24/22 18:48 Blood Pressure 101/58 L 06/24/22 18:48 O2 Saturation If not protocol: Oxygen Flow, liters/minute Patient is a 31-year-old 4144 at 29 weeks presenting to triage for leaking fluid. She said she is lying there and found a spot about 4 to 5 inches in her pants around 1800. She denies dysuria. This is the first time it happened. She has good movement, no vaginal bleeding. She denies headache, right upper quadrant pain, changes in vision. Patient does notably have a history of 3 prior section including a classical section. - Exam Physical Exam Constitutional: alert, no acute distress, well hydrated, well developed, well nourished, appropriate dress. Abdomen: nondistended, nontender, no guarding. No contractions palpated Psych: affect and mood appropriate, normal interaction, good eye contact. SVE: Declined - Procedures NST Procedure: NST Procedure Patient States Movement Yes - Plan Plan: 31-year-old with rupture of membranes ruled out 1. Leaking fluid -ROM plus negative -Unremarkable UA other than many squamous cells and bacteria. No dysuria or nitrites. No abdominal tenderness. -Discussed risks of labor and that she should take contraction seriously if she feels them. No sign of labor at this time. -Discharged with labor precautions. 2. 29 weeks gestation 3. Previous section x3 including classical section
== END 2022-06-24 21:16 | disposition home or self-care (01) ==
LOC: WFO 18:39 → FBP 18:41 → WFO 21:16
PROVIDERS: ATTEND Obstetrics & Gynecology
DX: O99.891 Other specified diseases and conditions complicating pregnancy (principal); N89.8 Other specified noninflammatory disorders of vagina; O34.219 Maternal care for unspecified type scar from previous cesarean delivery; Z3A.29 29 weeks gestation of pregnancy
CPT/HCPCS: 81001; 84112; 99213; 99215

== ENCOUNTER 2022-07-24 16:53 | Outpatient (CLI) | payer MEDICAID ==
--- NOTE | 2022-07-25 11:03 | Ultrasound Report ---
PROCEDURE: OB F/U or Repeat INDICATIONS: UTERINE SIZE DATE DISCREPENCY OUTSIDE/PRIOR DATING DATA: Last menstrual period (LMP): 11/30/2021. LMP-based estimated date of delivery (ALONDRA): 09/06/2022. First dating scan (date and location): 01/10/2022. Estimated date of delivery (ALONDRA) from first dating scan: 09/09/2022. TECHNIQUE: Real-time scanning was performed of the fetus, with image documentation and biometric measurements. Endovaginal scanning: Not performed. COMPARISON: 04/24/2022 FINDINGS: General: A single living intrauterine gestation is present. Presentation: Vertex Placenta: Placental position is anterior, without previa. Amniotic fluid index: 17.4 cm, normal for gestational age. heart rate: 138 beats per minute. Maternal cervical canal: Not well visualized biometrics: Biparietal diameter: 8.0 cm 32 weeks 1 day Head circumference: 30.2 cm 33 weeks 4 days Abdominal circumference: 28.6 cm 32 weeks 4 days Femur length: 6.2 cm 32 weeks 2 days Estimated gestational age from initial scan: 33 weeks 2 days Composite gestational age from present scan: 32 weeks 5 days Estimated weight and percentile: 1996 g, 21st percentile Measurement variability in biometric dating: +/- 10 days from 12-20 weeks gestation, +/- 2 weeks from 20-30 weeks gestation, +/- 3 weeks at 30 weeks gestation or more. Other: Prominent fluid-filled loop of bowel visualized. IMPRESSION: 1. Single living intrauterine in vertex presentation. 2. Estimated weight at the 21st percentile. 3. Prominent fluid-filled loop of bowel visualized, unclear etiology or clinical significance. Attention on future growth follow-up ultrasound is recommended if performed. Otherwise, could conside r follow-up imaging. Reviewed by: Anjel Patel MD on 07/25/2022 11:01 AM PDT Approved by: Anjel Patel MD on 07/25/2022 11:01 AM PDT Station ID: [id number]
== END 2022-07-24 16:54 | disposition home or self-care (01) ==
LOC: DI 16:53
PROVIDERS: ATTEND Nurse Practitioner
DX: O26.843 Uterine size-date discrepancy, third trimester (principal); Z3A.32 32 weeks gestation of pregnancy